=== PATIENT | male | born 1955 | race Caucasian/White ===

== ENCOUNTER 2017-07-25 17:15 | Inpatient (IN) | payer OTHER ==
[2017-08-14] MEDS ORDERED: Midazolam HCl 2 mg/2 ml Vial ONE ×2 (12:33→13:03)
[2017-08-14] MEDS ORDERED: Fentanyl 100 MCG/2 ML VIAL ONE ×2 (12:33→13:03)
[2017-08-14] MEDS ORDERED: CEFAZOLIN/Water 2 GM/20 ML SYRINGE ONE (12:42)
[2017-08-14] MEDS ORDERED: Ketorolac Tromethamine 30 MG/ML VIAL ONE (12:42)
[2017-08-14] MEDS ORDERED: Ketorolac Tromethamine 30 MG/ML VIAL IVP SCH (13:00)
[2017-08-14] MEDS ORDERED: cefOXitin Sodium 2 GM, Syringe 1 ML in Sterile Water 10 ML SLOW IVP SCH (13:00)
[2017-08-14] MEDS ORDERED: Acetaminophen 1,000 MG in Premix Bag 1 BAG IVPB SCH (13:00)
[2017-08-14] MEDS ORDERED: Fentanyl 250 MCG/5 ML VIAL ONE (13:03)
[2017-08-14] MEDS ORDERED: Albumin 5% 500 ML ONE (13:04)
[2017-08-14] MEDS ORDERED: Indocyanine Green 25 MG/10 ML VIAL ONE (13:14)
[2017-08-14] MEDS ORDERED: Bupivacaine/Epinephrine 0.25% 30 ML VIAL ONE (13:14)
[2017-08-14] MEDS ORDERED: Sterile Water 0 ML ONE (13:14)
[2017-08-14] MEDS ORDERED: Bupivacaine HCl 0.5%/Epinephrine 1:200,000/PF 30 ml Vial ONE (16:27)
[2017-08-14] MEDS ORDERED: Bupivacaine PF 0.5% 30 ML VIAL ONE (16:27)
[2017-08-14] MEDS ORDERED: Lidocaine 1% PF 5 ML VIAL ONE (16:40)
[2017-08-14] MEDS ORDERED: Propofol 200 MG/20 ML VIAL ONE (16:40)
[2017-08-14] MEDS ORDERED: Glycopyrrolate 0.2 MG/ML 5 ML SYRINGE ONE (16:40)
[2017-08-14] MEDS ORDERED: Ondansetron HCl/PF 4 MG/2 ML Vial ONE (16:40)
[2017-08-14] MEDS ORDERED: Dexamethasone 20 MG/5 ML VIAL ONE (16:40)
[2017-08-14] MEDS ORDERED: Promethazine HCl 25 MG/ML VIAL SLOW IVP PRN (17:23)
[2017-08-14] MEDS ORDERED: Meperidine HCl/PF 25 MG/ML VIAL SLOW IVP PRN (17:23)
[2017-08-14] MEDS ORDERED: Morphine 4 MG/ML Carpuject SLOW IVP PRN (19:03)
[2017-08-14] MEDS ORDERED: Ondansetron HCl/PF 4 MG/2 ML Vial IVP PRN (19:03)
[2017-08-14] MEDS ORDERED: Promethazine HCl 25 MG/ML VIAL IM PRN (19:03)
[2017-08-14] MEDS ORDERED: Insulin Regular 300 UNITS/3 ML VIAL SC PRN (19:03)
[2017-08-14] MEDS ORDERED: hydrALAZINE 20 MG/ML VIAL SLOW IVP PRN (19:03)
[2017-08-14] MEDS: Acetaminophen 1,000 MG in Premix Bag 1 BAG IVPB SCH (20:24)
[2017-08-14] MEDS: Ketorolac Tromethamine 30 MG/ML VIAL IVP SCH (20:25)
[2017-08-14] MEDS: D5 1/2 NS w/20 mEq KCL 1,000 ML IV SCH (20:26)
[2017-08-14] MEDS: Famotidine/PF 20 mg/2ml Vial SLOW IVP SCH (20:26)
[2017-08-14] MEDS: Famotidine 20 MG TAB PO SCH (20:43)
[2017-08-14 21:49] VITALS: BMI 28.6
[2017-08-15] MEDS ORDERED: Morphine 4 MG/ML VIAL SLOW IVP PRN (00:15)
[2017-08-15] MEDS ORDERED: Morphine 2 mg/2ml in 0.9% NaCl PF SYRINGE SLOW IVP PRN (00:15)
[2017-08-15] MEDS: Ketorolac Tromethamine 30 MG/ML VIAL IVP SCH ×3 (01:55→14:08)
[2017-08-15] MEDS: Acetaminophen 1,000 MG in Premix Bag 1 BAG IVPB SCH ×3 (01:55→14:18)
[2017-08-15] MEDS: D5 1/2 NS w/20 mEq KCL 1,000 ML IV SCH ×2 (05:24→14:23)
[2017-08-15 05:26] LABS: #Lymphocytes 0.9 thou/uL (1.20-3.40); #Neutrophils 12.6 thou/uL (1.40-6.50); %Basophils 0.2 % (0.0-1.0); %Eosinophils 0.2 % (0.0-10.0); %Lymphocytes 5.9 % (21.0-51.0); %Monocytes 7.2 % (0.0-10.0); Hematocrit 30.3 % (42.0-52.0); Mean Platelet Volume 7.1 fL (7.4-10.4); Red Blood Cell (RBC) Count 3.17 mill/uL (4.70-6.10); White Blood Cell (WBC) Count 14.5 thou/uL (4.8-10.8)
[2017-08-15 05:48] LABS: Anion Gap 11 mmol/L (10-20); BUN (Urea Nitrogen) 32 mg/dL (8.4-25.7); Calc. Creatinine Clearance 41 mL/min (70-130); Calcium 8.4 mg/dL (7.8-10.44); Carbon Dioxide 18 mmol/L (23-31); Chloride 109 mmol/L (98-107); Estimated GFR-MDRD 28
[2017-08-15] MEDS ORDERED: Lisinopril 5 MG TAB PO SCH ×2 (09:00→21:00)
[2017-08-15] MEDS ORDERED: FLU VACC QS2017-18 36 mo. & older 0.5 ML SYRINGE IM ONE (09:00)
[2017-08-15] MEDS: Famotidine 20 MG TAB PO SCH ×2 (09:01→20:19)
[2017-08-15] MEDS: Tamsulosin HCl 0.4 MG CAP PO SCH (09:01)
[2017-08-15] MEDS: Enoxaparin Sodium 40 MG/0.4 ML SYRINGE SC SCH ×2 (09:03→12:43)
[2017-08-15] MEDS: glyBURIDE 5 MG TAB PO SCH ×3 (09:59→17:13)
[2017-08-15] MEDS: metFORMIN 500 MG TAB PO SCH ×3 (10:00→17:13)
[2017-08-15] MEDS: Famotidine/PF 20 mg/2ml Vial SLOW IVP SCH ×2 (10:01→20:20)
[2017-08-15] MEDS ORDERED: Insulin Regular 300 UNITS/3 ML VIAL SC PRN (11:53)
[2017-08-15] MEDS ORDERED: Sodium Chloride 0.9% 1,000 ML IV SCH (12:00)
--- NOTE | 2017-08-15 13:47 | PRG ---
DATE OF SERVICE: 08/15/2017 SUBJECTIVE: Mr. 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 He has no complaints today. He is taking no additional narcotic medication since his s urgery. He notes very minimal discomfort. He has been tolerating clear liquids today. He denies na usea or vomiting. He has had no flatus yet. PHYSICAL EXAMINATION: VITAL SIGNS: He is afebrile, pulse 66, blood pressure 136/74. His urine output overnight was 1100 m L per his Bello. His Bello subsequently had been removed this morning. LUNGS: Clear to auscultation. CARDIAC: Regular rate and rhythm. ABDOMEN: Soft, nontender, nondistended. All the laparoscopic incisions are nicely healed with [employer] armendariz intact. No evidence of swelling or infection. Bowel sounds are present and normoactive. LABORATORY STUDIES: Reveals a hemoglobin of 10.4. This is stable from his preoperative hemoglobin o f 11. His platelet count is 210. On chemistries, his potassium is elevated at 5.7 this morning and this is up from his preop potassium level of 5.2 and his creatinine level is up to 2.3, which is up f rom his preoperative creatinine level of 1.9. His blood sugars were elevated over 200 a couple of ti mes today and he has been receiving some supplemental insulin. ASSESSMENT: The patient is doing well following his surgery. He was receiving some potassium in his IV fluids and this has been removed. I will continue even normal saline today in addition to clear liquids and monitor his kidney function. I will recheck his potassium level this afternoon. His lab oratory studies we will recheck tomorrow as well. He seems able to progress through his postoperativ e diet and if he is tolerating this and stable, then he is probably going to be ready for discharge t omorrow.
[2017-08-15 15:39] LABS: Anion Gap 12 mmol/L (10-20); BUN (Urea Nitrogen) 31 mg/dL (8.4-25.7); Calc. Creatinine Clearance 45 mL/min (70-130); Calcium 8.3 mg/dL (7.8-10.44); Carbon Dioxide 14 mmol/L (23-31); Chloride 112 mmol/L (98-107); Estimated GFR-MDRD 32
[2017-08-15] MEDS ORDERED: HYDROcodone/Acetaminophen 7.5/325 mg Tablet PO PRN ×2 (17:49)
[2017-08-15] MEDS ORDERED: Lactated Ringer's 1,000 ML IV SCH (18:15)
[2017-08-16 05:17] LABS: #Basophils 0.1 thou/uL (0.0-0.2); #Eosinphils 0.2 thou/uL (0.0-0.7); #Lymphocytes 1.7 thou/uL (1.20-3.40); #Monocytes 0.7 thou/uL (0.11-0.59); #Neutrophils 8.3 thou/uL (1.40-6.50); %Basophils 0.5 % (0.0-1.0); %Eosinophils 1.5 % (0.0-10.0); %Lymphocytes 15.4 % (21.0-51.0); %Monocytes 6.7 % (0.0-10.0); Hematocrit 26.2 % (42.0-52.0); Mean Platelet Volume 7.3 fL (7.4-10.4); Red Blood Cell (RBC) Count 2.74 mill/uL (4.70-6.10)
[2017-08-16 05:58] LABS: Anion Gap 10 mmol/L (10-20); BUN (Urea Nitrogen) 31 mg/dL (8.4-25.7); Calc. Creatinine Clearance 50 mL/min (70-130); Calcium 8.6 mg/dL (7.8-10.44); Carbon Dioxide 17 mmol/L (23-31); Chloride 112 mmol/L (98-107); Estimated GFR-MDRD 36
[2017-08-16] MEDS: Famotidine/PF 20 mg/2ml Vial SLOW IVP SCH (08:27)
[2017-08-16] MEDS: Famotidine 20 MG TAB PO SCH (08:29)
[2017-08-16] MEDS: Tamsulosin HCl 0.4 MG CAP PO SCH (08:29)
[2017-08-16] MEDS: Enoxaparin Sodium 40 MG/0.4 ML SYRINGE SC SCH (08:31)
[2017-08-16] MEDS: metFORMIN 500 MG TAB PO SCH (10:30)
[2017-08-16] MEDS: glyBURIDE 5 MG TAB PO SCH (10:30)
[2017-08-16 12:52] VITALS: BP 152/77; TEMP 97.9
--- NOTE | 2017-08-16 19:28 | DIS ---
DATE OF SERVICE: 08/16/2017 ADMISSION DIAGNOSIS: Cecal polyp. DISCHARGE DIAGNOSIS: Cecal polyp. OPERATIONS AND PROCEDURES PERFORMED: Robotic ileocecectomy. ADMISSION HISTORY: The patient is a 62-year-old white male who underwent recent colonoscopy and eval uation of anemia. He was found to have a 3 cm sessile cecal polyp. He is taken to the operating [facility]ern[facility] at this time for robotic resection. HOSPITAL COURSE: He underwent uneventful surgery. This segment was removed and inspected in the ope rating room and it was appropriate removal with good margins of the tissue. He has had an uneventful recovery. He has not taken any pain medicine since surgery. He has been afebrile with normal vital signs since his surgery. He is tolerating liquids and full liquids uneventfully with no nausea or v omiting. He has had several bowel movements. His abdomen is benign with normal bowel sounds. Incis ions are all nicely healed. His laboratory values revealed mild anemia yesterday of 10.4 with a hemoglobin of 8.8 today. His pancho karma profile revealed an elevation of creatinine early yesterday morning of 2.3 that dropped down t o 2.1 by afternoon and 1.9 today. This is back to his baseline. He had hyperkalemia initially that resolved quickly with IV fluids as well. In summary, he is doing well and feels well at this time and desires discharge. He appears to be med ically safe and we will discharge him to home at this time with prescriptions for tramadol to use as necessary. I have recommended he resume all of his home medications including his iron sulfate which he was already taking. I will see him back in my office in 10-14 days for routine followup. Additi onally, his pathology is pending at this time.
--- NOTE | 2017-08-17 13:50 | OP ---
DATE OF PROCEDURE: 08/14/2017 PREOPERATIVE DIAGNOSIS: Colonoscopically unresectable cecal polyp. POSTOPERATIVE DIAGNOSIS: Colonoscopically unresectable cecal polyp. OPERATION PERFORMED: Robotic ileocecectomy with primary intracorporeal anastomosis. SURGEON: Charlie Naranjo M.D. ANESTHESIA: General endotracheal. INDICATIONS: The patient is a 62-year-old white male. He recently underwent colonoscopy and evaluat ion of anemia. He was found to have a 3-4 cm cecal polyp that was colonoscopically unresectable. He was referred to myself for colon resection. Given the appearance in the pathology of the polyp that was felt to have low likelihood of malignancy, I recommended consideration of ileocecectomy as oppos ed to a right hemicolectomy, depended upon anatomy. DESCRIPTION OF OPERATION: Informed consent was obtained. The patient was taken to the operating [facility]ern[facility] m where general endotracheal anesthesia was obtained with the patient in supine position. He had und ergone outpatient mechanical and antibiotic bowel prep. His temperature was maintained at 36 degrees or above throughout the case. Abdomen was prepped with ChloraPrep and draped in sterile fashion. Bello catheter was placed. Local anesthetic was infiltrated and an 8 mm left periumbilical incision was created through which a Veres s needle was passed into the peritoneal cavity. Pneumoperitoneum was established using carbon dioxid e up to a pressure of 15 mmHg. An 8 mm trocar port was passed through this same incision and robotic camera was passed through this port. Under direct vision, I placed a 15 mm left upper quadrant port and an 8 mm suprapubic port and an 11 mm left lower quadrant gallery assistant port. The patient was positioned appropriately in slight Trendelenburg and slight rotation to his left. e robot was then docked to the ports and instruments and the operation was continued from the robotic console. There was abundant intraabdominal fatty tissue that at times hampered the exposure. The omentum was reflected superiorly. The ileum and cecum were identified. There was abundant fatty epiploic append ages and redundant fat within the mesentery of the right colon. The distal ileum and cecum were adhe rent to the lateral abdominal wall. These adhesions were taken down using sharp dissection. I was t hen able to elevate the cecum in order to identify the ileocolic vessels. Dissection was begun on and during the course of dissection, without incising the vessels, they began to tear and bleed sp ontaneously. They appeared to be weaker and much more fragile than typical. I was eventually able t o get control and sealed the vessels both proximally and distally using the vessel sealer. There was approximately 150 mL of blood loss as appropriate control was obtained. After hemostasis was achiev ed, attention was turned to the operation. A retroperitoneal dissection was carried out behind the c ecum in the mid right colon using entirely blunt dissection and it was carried down to the lateral ab dominal wall. When I examined the patient's anatomy, he had adequate length of his right colon to al low for an appropriate ileocecectomy without necessitating a right hemicolectomy. I then carried the dissection through the right colon mesentery up to the colonic wall, and at this point, I divided th e right colon just distal to the cecum with 2 fires of the blue load of the robotic stapler. I then turned my attention back to the mesentery and dissected towards the small bowel. When I arriv ed, an appropriate segment of the small bowel, I divided this ulcer with a single fire of the stapler . The intervening mesentery was taken down using a combination of sharp dissection with electrocaute ry and the vessel sealer. Once complete mobilization was achieved including the lateral attachments, the colon was positioned above the liver and the operation was continued. The small bowel rested comfortably against the stapled colon. An isoperistaltic anastomosis was then created with a single fire of the blue load of the robotic stapler entering the small bowel near the staple line and the colon about 7 cm from the staple line. The common enterotomy was then closed us ing a running suture of 3-0 Stratafix in a to and fro fashion. The anastomosis appeared to be widely patent and nicely closed. There had been no spillage during the course of the anastomosis with the closure. The anastomosis was tension free. The abdominal cavity was irrigated and all irrigant was aspirated. The areas of the ileocolic vessel transection were inspected again and found to be entirely hemosta tic. The fascial defects at the 15 mm port site and the 11 mm port site were closed with 0 Vicryl arauz ture using a GraNee needle. The specimen was grasped through one of the superior ports. Attention w as turned to the inferior suprapubic port. This incision was enlarged to about 4 cm. Dissection was carried down to the fascia which was incised transversely and the muscles were split using muscle sp litting gaining access into the peritoneal cavity. The Jose wound retractor was placed. The speci men was delivered through the wound retractor and passed off the field. The wound retractor was pelon tiff. The peritoneum was closed with a couple of interrupted sutures of 0 PDS. The fascia was closed with a running suture of #1 PDS. At this point, gowns and gloves were changed, all instruments were removed, and the sterile closing s ilk was used. The wounds were irrigated with about 2 liters of saline. The wounds were closed in la yers with 3-0 and 4-0 Monocryl, and Dermabond was placed externally. There were no complications. T he patient tolerated the procedure well and was taken in stable condition to the recovery room.
== END 2017-08-16 15:51 | disposition home or self-care (01) | DRG 331 ==
LOC: SURG A 08-14 11:26 → SJJU 08-14 18:26
PROVIDERS: ADMIT Specialist; ATTEND Specialist
PROC: 0DTH4ZZ Resection of Cecum, Percutaneous Endoscopic Approach (ICD-10-PCS; principal; 2017-08-14)
PROC: 8E0W4CZ Robotic Assisted Procedure of Trunk Region, Percutaneous Endoscopic Approach (ICD-10-PCS; 2017-08-14)
PROC: 3E0T3BZ Introduction of Anesthetic Agent into Peripheral Nerves and Plexi, Percutaneous Approach (ICD-10-PCS; 2017-08-14)
DX: D12.6 Benign neoplasm of colon, unspecified (principal); E11.65 Type 2 diabetes mellitus with hyperglycemia; E87.5 Hyperkalemia; Z88.2 Allergy status to sulfonamides
CPT/HCPCS: 36415; 36416; 80048; 85025; 88309; A4216; J0131; J0360; J0670; J0694; J1100; J1650; J1815; J1885; J2001; J2250; J2405; J2550; J2704; J3010; P9045; S0020; S0028

== ENCOUNTER 2017-08-01 11:20 | Outpatient (CLI) | payer OTHER ==
[2017-08-01 12:47] LABS: #Eosinphils 0.3 thou/uL (0.0-0.7); #Lymphocytes 1.2 thou/uL (1.20-3.40); #Monocytes 0.5 thou/uL (0.11-0.59); #Neutrophils 6.7 thou/uL (1.40-6.50); %Basophils 0.4 % (0.0-1.0); %Eosinophils 2.9 % (0.0-10.0); %Lymphocytes 14.2 % (21.0-51.0); %Monocytes 6.1 % (0.0-10.0); Hematocrit 32.1 % (42.0-52.0); Mean Platelet Volume 7.5 fL (7.4-10.4); White Blood Cell (WBC) Count 8.7 thou/uL (4.8-10.8)
[2017-08-01 12:50] LABS: Hemoglobin A1c 6.7 % (4.0-6.0)
[2017-08-01 13:06] LABS: Anion Gap 11 mmol/L (10-20); BUN (Urea Nitrogen) 30 mg/dL (8.4-25.7); Calc. Creatinine Clearance 0 mL/min (70-130); Calcium 8.9 mg/dL (7.8-10.44); Carbon Dioxide 23 mmol/L (23-31); Chloride 107 mmol/L (98-107); Estimated GFR-MDRD 35
--- NOTE | 2017-08-05 08:44 | EKG ---
Test Reason : Blood Pressure : / mmHG Vent. Rate : 057 BPM Atrial Rate : 057 BPM P-R Int : 164 ms QRS Dur : 088 ms QT Int : 426 ms P-R-T Axes : 037 -29 -04 degrees QTc Int : 414 ms Sinus bradycardia Minimal voltage criteria for LVH, may be normal variant Borderline ECG No previous ECGs available Confirmed by Geovany MCINTYRE ([id number]) on 08/05/2017 8:43:51 AM Referred By: AMYITO Confirmed By:Geovany MCINTYRE
== END 2017-08-01 11:21 | disposition home or self-care (01) ==
LOC: LABBT 11:20
PROVIDERS: ATTEND Specialist
DX: Z01.818 Encounter for other preprocedural examination (principal); D12.6 Benign neoplasm of colon, unspecified
CPT/HCPCS: 80048; 83036; 85025; 93005; 93010

== ENCOUNTER 2018-06-14 10:55 | Inpatient (IN) | payer MEDICARE ==
[2018-06-14 11:46] LABS: #Eosinphils 0.1 thou/uL (0.0-0.7); #Lymphocytes 0.7 thou/uL (1.20-3.40); #Monocytes 0.6 thou/uL (0.11-0.59); #Neutrophils 9.5 thou/uL (1.40-6.50); %Basophils 0.2 % (0.0-1.0); %Eosinophils 0.9 % (0.0-10.0); %Lymphocytes 6.2 % (21.0-51.0); %Monocytes 5.2 % (0.0-10.0); %Neutrophils 87.5 % (42.0-75.0); Hemoglobin 7.2 g/dL (14.0-18.0); Mean Corpuscular HGB CONC 33.9 g/dL (32.0-36.0); Mean Corpuscular Hemoglobin 31.2 pg (27.0-31.0); Mean Platelet Volume 6.8 fL (7.4-10.4); Platelet Count 285 thou/uL (130-400); RBC Distribution Width 14.3 % (11.5-14.5); Red Blood Cell (RBC) Count 2.31 mill/uL (4.70-6.10); White Blood Cell (WBC) Count 10.9 thou/uL (4.8-10.8)
[2018-06-14 12:10] LABS: ALT (SGPT) 15 U/L (8-55); AST (SGOT) 15 U/L (5-34); Albumin 3.6 g/dL (3.4-4.8); Alkaline Phosphatase 90 U/L (40-150); Anion Gap 16 mmol/L (10-20); BUN (Urea Nitrogen) 109 mg/dL (8.4-25.7); Bilirubin, Total 0.5 mg/dL (0.2-1.2); CK (CPK) 72 U/L (30-200); Calc. Creatinine Clearance 0 mL/min (70-130); Calcium 8.2 mg/dL (7.8-10.44); Carbon Dioxide 11 mmol/L (23-31); Chloride 110 mmol/L (98-107); Estimated GFR-MDRD 7; Globulin 4.2 g/dL (2.4-3.5); Glucose 193 mg/dL (80-115); Lipase 262 U/L (8-78); Potassium 5.3 mmol/L (3.5-5.1); Protein, Total 7.8 g/dL (5.8-8.1); Sodium 132 mmol/L (136-145)
[2018-06-14 12:13] LABS: CKMB 2.9 ng/mL (0-6.6); Troponin I Less than 0.010 ng/mL (< 0.028)
[2018-06-14] MEDS ORDERED: Dextrose 50% Abboject 50 ML SYRINGE ONE (14:13)
[2018-06-14] MEDS ORDERED: Insulin Regular 300 UNITS/3 ML VIAL ONE (14:13)
[2018-06-14 14:51] LABS: Bilirubin Negative (Negative); Blood, Urine Moderate (Negative); Clarity TURBID (Clear); Glucose, Urine (Dipstick) Negative (Negative); Leukocyte Large (Negative); Nitrite Negative (Negative); Protein, Urine (Dipstick) 30 mg/dL (Neg-Trace); Specific Gravity, Urine 1.006 (1.002-1.036); Urobilinogen 0.2 mg/dL (0.2-1.0)
[2018-06-14 14:54] LABS: Bacteria/HPF 1+ HPF (None Seen); Hyaline Casts/LPF 4-6 HYALINE CAST LPF (0-3 Hyaline); Squamous Epithelial None Seen HPF (0-3)
[2018-06-14 17:39] VITALS: BMI 27.5
[2018-06-14] MEDS ORDERED: Epoetin (ESRD) 20,000 UNITS/ML SC SCH (18:00)
[2018-06-14] MEDS: Sodium Chloride 0.9% 1,000 ML IV SCH (18:38)
[2018-06-14] MEDS ORDERED: Ondansetron HCl/PF 4 MG/2 ML Vial IVP PRN (20:09)
[2018-06-14] MEDS ORDERED: Dextrose 50% Abboject 50 ML SYRINGE SLOW IVP PRN (20:09)
[2018-06-14] MEDS ORDERED: Ondansetron ODT 4 MG TAB PO PRN (20:09)
[2018-06-14] MEDS ORDERED: HYDROcodone/Acetaminophen 5/325 mg Tablet PO PRN (20:09)
[2018-06-14] MEDS ORDERED: Acetaminophen 650 MG Suppository PR PRN (20:09)
[2018-06-14] MEDS ORDERED: Dextrose 5% in Water 1,000 ML IV PRN (20:09)
[2018-06-14] MEDS: Heparin 5,000 UNITS/ML VIAL SC SCH (20:45)
[2018-06-14] MEDS: Famotidine 20 MG TAB PO SCH (20:46)
[2018-06-14] MEDS: Finasteride 5 MG TAB PO SCH (20:47)
[2018-06-14] MEDS: HumaLOG 300 UNITS/3 ML VIAL SC PRN (20:49)
--- NOTE | 2018-06-14 23:39 | CON ---
DATE OF CONSULTATION: 06/14/2018 RENAL MEDICINE HISTORY OF PRESENT ILLNESS: Mr. Little is a 63-year-old white male with known history of chronic re nal failure and was admitted for further management of this worsening renal dysfunction. Over the la st several months, his creatinine has worsened from 2.45 to the most recent value of more than 7 mg p ercent. He is now admitted for further evaluation and management. He will be given empiric volume r epletion and Bello catheter has been started. If no significant improvement, he may need to be initi ated on dialysis. REVIEW OF SYSTEMS: Positive for generalized malaise. No nausea, no vomiting. No tremors, no asteri xis, no abdominal pain, no syncopal episode, no productive cough, no fever or chills. No hematochezi a, no melena, no hematemesis, no dysuria, no urinary frequency, no abdominal pain, no fever or chills , no headache, no sore throat. HOME MEDICATIONS: Includes the following; iron 65 mg tab once a day, glipizide 5 mg p.o. b.i.d., osoroi sulosin 0.4 mg once a day, acetaminophen p.r.n., folic acid 800 mg once a day. PAST MEDICAL HISTORY: 1. Chronic renal failure secondary to presumed diabetic nephropathy. 2. Type 2 diabetes mellitus. 3. BPH. 4. 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 Please note [facility] of diabetes for the last 30 years. PAST SURGICAL HISTORY: 1. Status post right hemicolectomy. 2. Status post appendectomy. 3. Status post colonoscopy. 4. Status post tonsillectomy. ALLERGIES: SULFA. TRAUMA: None. IMMUNIZATIONS: Up to date. HOSPITALIZATIONS: Please see past medical history. FAMILY HISTORY: No family history of ESRD. SOCIAL HISTORY: The patient is and lives in [place], he has several stepchildren - 4. No hist ory of smoking. Alcohol none. No IV drug abuse. 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 Education: As sociate's Degree. He chews tobacco, no IV drug abuse. No blood transfusion. PHYSICAL EXAMINATION: VITAL SIGNS: Blood pressure is noted at 140/67, respiratory rate 17, O2 sat 100%, heart rate 71. GENERAL: Awake, alert, sitting comfortable, not in distress. SKIN: Adequate turgor. HEENT: He has pale conjunctivae, anicteric sclerae. NECK: No neck mass, no carotid bruits, no JVD. CHEST: No deformities. LUNGS: Clear breath sounds. HEART: Normal sinus rhythm. No murmur, no gallops, no rubs. ABDOMEN: Globular, soft, nontender, no masses. EXTREMITIES: No edema, no deformities. NEUROLOGIC: Moving all extremities. No tremors, no asterixis, no ataxia. LABORATORY DATA: Laboratories of 06/14/2018; urinalysis, specific gravity is 10.06. Urine protein 3 0, RBC 4-6, WBC greater than 50, 4-6 hyaline cast. Sodium 132, potassium 5.3, chloride 110, carbon dioxide 11, BUN 109, creatinine 7.54, glucose 193, ca lcium 8.2, albumin is 3.6, troponin I less than 0.01, lipase 262. White count 10.9, hemoglobin 7.2. ASSESSMENT AND PLAN: 1. Anemia - most likely related to her chronic renal failure. Start Epogen and iron supplementation - p.r.n. blood transfusion once hemoglobin is less than 7. 2. Chronic renal failure, unclear etiology, although diabetic nephropathy is a possibility. We will do a renal ultrasound to rule out a possible obstructive uropathy with this patient. In addition, e mpiric volume repletion has been done with the patient. There is no indication for any emergent hemo dialysis tonight. We will reevaluate again in a.m. 3. ? of UTI. Urine C&S has been ordered. In addition, a renal ultrasound has also been ordered for tonight. Several serologies have been also ordered for tomorrow morning. Overall, agree with current manageme nt.
[2018-06-15] MEDS: HYDROcodone/Acetaminophen 5/325 mg Tablet PO PRN (00:36)
[2018-06-15] MEDS: Sodium Chloride 0.9% 1,000 ML IV SCH ×3 (02:36→23:13)
[2018-06-15 04:44] LABS: #Eosinphils 0.3 thou/uL (0.0-0.7); #Lymphocytes 1.2 thou/uL (1.20-3.40); #Monocytes 0.8 thou/uL (0.11-0.59); #Neutrophils 10.4 thou/uL (1.40-6.50); %Basophils 0.1 % (0.0-1.0); %Eosinophils 2.3 % (0.0-10.0); %Lymphocytes 9.3 % (21.0-51.0); %Monocytes 6.1 % (0.0-10.0); %Neutrophils 82.1 % (42.0-75.0); Hemoglobin 7.6 g/dL (14.0-18.0); Mean Corpuscular HGB CONC 33.2 g/dL (32.0-36.0); Mean Corpuscular Hemoglobin 30.9 pg (27.0-31.0); Mean Corpuscular Volume 92.9 fL (78.0-98.0); Mean Platelet Volume 6.8 fL (7.4-10.4); Platelet Count 281 thou/uL (130-400); RBC Distribution Width 14.5 % (11.5-14.5); Red Blood Cell (RBC) Count 2.46 mill/uL (4.70-6.10); White Blood Cell (WBC) Count 12.6 thou/uL (4.8-10.8)
[2018-06-15 04:52] LABS: Anion Gap 14 mmol/L (10-20); BUN (Urea Nitrogen) 101 mg/dL (8.4-25.7); Calc. Creatinine Clearance 14 mL/min (70-130); Calcium 8.3 mg/dL (7.8-10.44); Carbon Dioxide 11 mmol/L (23-31); Chloride 114 mmol/L (98-107); Estimated GFR-MDRD 9; Glucose 127 mg/dL (80-115); Potassium 4.9 mmol/L (3.5-5.1); Sodium 134 mmol/L (136-145)
[2018-06-15 05:10] LABS: HBSAg Index 0.19 S/CO (0-0.99); Hep B Surf Ag Non-Reactive S/CO (NonReactive); Hep C IgG Ab Non-Reactive (NonReactive); Hep C Index 0.12 S/CO (0-0.79)
[2018-06-15] MEDS: Famotidine 20 MG TAB PO SCH ×2 (08:27→20:27)
[2018-06-15] MEDS: Ferrous Sulfate 325 MG TAB PO SCH ×2 (08:27→16:18)
[2018-06-15] MEDS: Heparin 5,000 UNITS/ML VIAL SC SCH ×3 (08:28→20:33)
--- NOTE | 2018-06-15 08:45 | ULT ---
RENAL SONOGRAM: HISTORY: Renal failure. FINDINGS: The right kidney is 14.5 cm length. Moderate hydroureteral nephrosis. Multiple cysts. The largest is at the inferior pole measuring up to 5.7 cm. The left kidney is 11.8 cm and also shows moderate to severe hydronephrosis. Urinary bladder is deco mpressed by a Bello catheter. IMPRESSION: Bilateral hydronephrosis. Cause not evident. Urinary bladder is decompressed by a Bello catheter. Right renal cysts. POS: [facility]
[2018-06-15] MEDS ORDERED: Tamsulosin HCl 0.4 MG CAP PO SCH (09:00)
[2018-06-15] MEDS: cefTRIAXone\\ROCEPHIN 2 GM in Sodium Chloride 0.9% 100 ML IVPB SCH (11:36)
[2018-06-15] MEDS: HumaLOG 300 UNITS/3 ML VIAL SC PRN ×3 (11:37→21:32)
--- NOTE | 2018-06-15 12:08 | PRG ---
DATE OF SERVICE: 06/15/2018 SUBJECTIVE: Mr. Little is a 63-year-old white male who was admitted for an acute kidney injury on t op of his chronic renal failure. He was started on IV volume repletion. In addition, Bello catheter was inserted. Of interest, when the Bello catheter was inserted, about 800 mL of urine output was n oted. He also had renal ultrasound which shows bilateral hydronephrosis. No complaints today, no ch est pain or shortness of breath. He does make mention of some degree of insomnia. OBJECTIVE: VITAL SIGNS: Blood pressure 155/70, heart rate 76, respiratory rate 13, temperature 98.5, pulse ox 9 9%. GENERAL: Noted to be awake, alert, comfortable, not in overt distress. SKIN: Adequate turgor. HEENT: He has slightly pale conjunctivae, anicteric sclerae. NECK: No neck mass, no carotid bruits, no JVD. CHEST: No deformities. LUNGS: Clear breath sounds, no wheezing, no crackles. HEART: Normal sinus rhythm. No murmur, no gallops or rubs. ABDOMEN: Globular, soft, nontender, no masses. Positive for bowel sounds. Negative for epigastric bruits. GROIN: No inguinal lymphadenopathy. EXTREMITIES: No edema, no deformities. MEDICATIONS: Of 06/15/2018 was reviewed. LABORATORY DATA: Of 06/15/2018: White count 12.6, hemoglobin 7.6. Sodium 134, potassium 4.9, chlori de 114, carbon dioxide 11, BUN 101, creatinine 6.48, glucose 127, calcium 8.3. PTH is 118. Hepatiti s B and C was negative. Urinalysis specific gravity 106. ASSESSMENT AND PLAN: 1. Acute kidney injury -- renal ultrasound showed bilateral hydronephrosis. We will consider a low bladder outlet obstruction for this patient. Continue to leave the Bello catheter as is. Continue gentle volume repletion. There is no indication for any dialytic intervention with this patient. 2. Anemia, on weekly Epogen, p.m. blood transfusion. 3. Metabolic acidosis -- start sodium bicarbonate 650 mg p.o. 1 tab t.i.d. We will consult Urology for the bilateral hydronephrosis. Overall, I agree with current management. Recheck base met and CB C in a.m.
[2018-06-15] MEDS ORDERED: B & O 30 MG SUPP PR SCH (14:30)
[2018-06-15] MEDS: Sodium Bicarbonate Tab 325 MG TAB PO SCH ×2 (15:04→20:33)
--- NOTE | 2018-06-15 15:36 | PDOC.PN ---
- Subjective Encounter Start Date: 06/15/18 Encounter Start Time: 14:00 pt feels better, burr in, renal U/S and nephrology note reviewed good UOP, Cr down >1.0. no f/C, no n/V/d/c ROS neg x as above. Urology has seen, recommendations pending - Objective Resuscitation Status: Resuscitation Status FULL:Full Resuscitation MAR Reviewed: Yes Vital Signs & Weight: Vital Signs (12 hours) Temp Pulse Resp BP BP Pulse Ox 06/15/18 12:29 98.4 F 104 H 16 159/74 H 100 06/15/18 08:23 98.5 F 76 13 155/70 H 99 06/15/18 08:00 99 Weight Weight 186 lb 9.6 oz I&O: 06/14/18 06/15/18 06/16/18 06:59 06:59 06:59 Intake Total 1440 Output Total 2775 Balance -1335 Result Diagrams: 06/15/18 03:57 06/15/18 03:57 Additional Labs: Accuchecks 06/15/18 06/15/18 06/14/18 11:24 05:51 20:44 POC Glucose 255 H 138 H 312 H Radiology Reviewed by me: Yes Phys Exam - Physical Examination Constitutional: NAD HEENT: PERRLA, moist MMs, sclera anicteric, oral pharynx no lesions Neck: no nodes, no JVD, supple, full ROM Respiratory: no wheezing, no rales, no rhonchi, clear to auscultation bilateral Cardiovascular: RRR, no significant murmur, no rub Gastrointestinal: soft, non-tender, no distention, positive bowel sounds Musculoskeletal: no edema, pulses present Neurological: non-focal, normal sensation, moves all 4 limbs Lymphatic: no nodes Psychiatric: normal affect, A&O x 3 Skin: no rash, normal turgor, cap refill <2 seconds Dx/Plan (1) JOSE (acute kidney injury) Code(s): N17.9 - ACUTE KIDNEY FAILURE, UNSPECIFIED Status: Acute (2) CKD (chronic kidney disease) stage 4, GFR 15-29 ml/min Code(s): N18.4 - CHRONIC KIDNEY DISEASE, STAGE 4 (SEVERE) Status: Chronic (3) Bladder outlet obstruction Code(s): N32.0 - BLADDER-NECK OBSTRUCTION Status: Chronic (4) BPH NOS w ur obs/LUTS Code(s): N40.1 - BENIGN PROSTATIC HYPERPLASIA WITH LOWER URINARY TRACT SYMP Status: Chronic (5) DM2 (diabetes mellitus, type 2) Status: Chronic Qualifiers: Diabetes mellitus [facility] insulin use: without [facility] use Diabetes mellitus complication status: without complication Qualified Code(s): E11.9 - Type 2 diabetes mellitus without complications - Plan cont current plan of care, continue antibiotics, PT/OT, out of bed/ambulate * . continue burr, follow up on urology recommendations
[2018-06-15] MEDS ORDERED: Sodium Chloride 0.9% 10 ML ONE (20:11)
[2018-06-15] MEDS: Finasteride 5 MG TAB PO SCH (20:27)
[2018-06-15] MEDS: Tamsulosin HCl 0.4 MG CAP PO SCH (20:27)
[2018-06-15] MEDS: traZODone HCl 50 MG TAB PO SCH (20:28)
--- NOTE | 2018-06-15 21:05 | CON ---
DATE OF CONSULTATION: 06/15/2018 REASON FOR CONSULTATION: Consultation requested for bilateral hydronephrosis with presumed bladder outlet obstruction. HISTORY OF PRESENT ILLNESS: The patient is a 63-year-old male who was followed in the office by the [facility] previously for his BPH and been on tamsulosin before, but never finasteride. He reports not having been seen by them for at least a year and half since they actually retired in the summer of 2016 and he has not seen another urologist since then. Normally, he has frequency q.2 hours and nocturia times 4 to 5. The stream can be variable. He does not always feel like he is emptying. He has never required a catheter before. He does admit to prior urinary tract infections and also had cystoscopy in the office as part of the workup for that. He was noted to have large residuals and the [facility] did discuss catheterization with him, but this was never initiated. He reports having been screened with digital rectal exams, but he is not sure about his PSAs. I assume that they would have checked this, but I do not have any records of PSAs. PAST MEDICAL HISTORY: Significant for diabetes for 30 years, chronic renal insufficiency with anemia. PAST SURGICAL HISTORY: Includes right hemicolectomy for multiple polyps in 2016, appendectomy, and tonsils. MEDICATIONS: Iron, glipizide b.i.d., tamsulosin, folic acid. ALLERGIES: He is allergic to SULFA. SOCIAL HISTORY: He does not smoke; however, he does chew cigars on occasion. He does not drink, uses no drugs. 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 REVIEW OF SYSTEMS: In the recent past, he has had some lethargy, known BPH. Bowels have been variable. It varies from loose stools to normal. He had one yesterday morning that seems to be normal for him. He is due for another colonoscopy sooner than later given the one in 04/2017 showed the polyps that were not all adequately removed without the definitive surgery. He has no chest pain, no shortness of breath, no fever. He seems always cold, but does not actually have chills. He was nauseous and vomited a few days back and does report that sometimes his stools are black, but never seen blood in them. FAMILY HISTORY: Mom at 90. She had colon cancer, but survived and of something else. Dad at 83 of unknown causes. He does not think he had any cancer. PHYSICAL EXAMINATION: GENERAL: He is standing up at the bed, feeling relatively comfortable. VITAL SIGNS: T-max 98.5, blood pressure 155/70, heart rate 76, saturating 96% on room air with a respiratory rate of 13. It was reported that in the ER, a catheter was placed for 750 and by the time he left the ER, there was 1300 total ; and overnight, he has had another 1400. He was stood and laid down for the exam. NECK: He had no JVD. He actually had decent color for his anemia. HEENT: No scleral icterus. CARDIOVASCULAR: Regular rate and rhythm. No murmurs, gallops, or rubs. LUNGS: Clear to auscultation bilaterally. ABDOMEN: Softly distended, nontender with normoactive bowel sounds. GENITOURINARY: Testes were descended bilaterally without masses. Phallus is uncircumcised with the phallus reduced and Bello catheter in place. The Bello catheter was actually twisted upon itself and not able to drain adequately from that standpoint, but I was also concerned about the amount that was sticking out and that the balloon might be stuck in the prostate. I pushed this in with some difficulty, but it did seem to go in and not kick back. After manipulating the catheter, I hand irrigated it and he had significant discomfort and pressure with this much more than would be anticipated. So, at this point, I took down the balloon; however, only 2 mL of fluid came out and then it was stuck. So, I do think that there was some kinking or compression on the balloon. Ultimately, by leaving there approximately 30 seconds later, it spontaneously deflated and I wanted to place another. So, I took this out and prepped him sterilely and attempted to place an 18-Luxembourger coude without success and with significant discomfort to the patient. I was not convinced that it was in place, so I never attempted to blow up the balloon and removed it and prepared for flexible cystoscopy. RECTAL: On digital rectal exam, he had an enlarged prostate with a nodule noted on the lateral right side. There was no sidewall fixation. He reports that that was unknown to him. The patient was prepped and using an 18-Luxembourger flexible cystoscope, the urethra was traversed. The sphincter was quite tight, but able to be pushed through and then the prostate did not really have any obvious trauma and then I was into the bladder, inspection, I did not see any obvious mass, but I was clearly inside the bladder and left a wire in that place and removed the cystoscope and then placed an 18-Luxembourger Tryon over the wire without difficulty. All of this seemed painful to the patient, but once the balloon was blown up, he had no discomfort and slowly started to feel better and the catheter was draining yellow urine and it was secured appropriately. LABORATORY DATA: Laboratory values reveal a significant anemia of 7.6 and 22.8. BUN and creatinine are very elevated. He came in at 109 and 7.54. It only came down to 101 and 6.48, which is not consistent with adequate drainage after bladder outlet obstruction, but he does have the known renal insufficiency ; however, his baseline is closer to 2. Urinalysis from admission showed too numerous to count wbc's, 4-6 red blood cells, 1+ bacteria and no skin cells, and 30 protein. A urine culture from November of this year showed Klebsiella pneumoniae. I do not have a urinalysis from that. A renal ultrasound from 02/2018 was reviewed personally and showed bilateral hydronephrosis with a Bello in the bladder and it did not appear to be fully decompressed, although the balloon did appear to be in the bladder and there was a right simple cyst. ASSESSMENT: We have a 63-year-old male with chronic renal insufficiency on top of bladder outlet obstruction with a Bello catheter that initially was likely not draining sufficiently despite good output. It was replaced with a Bello catheter that is for sure adequately in the bladder/draining, and hopefully this will help to further improve his renal function and creatinine by tomorrow. I have started him on Rocephin for presumed infection and all the significant manipulation from the catheter attempts. I will increase his tamsulosin to twice a day and add finasteride (which was already done this stay- -he should stay on these indefinitely and/or until surgery is considered. He also has an abnormal digital rectal exam, and I do not have any prior PSAs. So I have asked him to work to get the records from Dr. Colvin's office. We will go ahead and order one now, but I expect it to be elevated based on all of the manipulation and mild infection that has occurred this day. So, continue indwelling catheter secured all times and monitor. MTDD
[2018-06-15] MEDS: Acetaminophen 325 MG TAB PO PRN (23:17)
[2018-06-16 05:15] LABS: #Basophils 0.1 thou/uL (0.0-0.2); #Eosinphils 0.2 thou/uL (0.0-0.7); #Lymphocytes 1.7 thou/uL (1.20-3.40); #Monocytes 0.5 thou/uL (0.11-0.59); #Neutrophils 7.4 thou/uL (1.40-6.50); %Basophils 0.6 % (0.0-1.0); %Eosinophils 1.9 % (0.0-10.0); %Lymphocytes 17.1 % (21.0-51.0); %Monocytes 5.5 % (0.0-10.0); Hemoglobin 7.4 g/dL (14.0-18.0); Mean Corpuscular HGB CONC 34.2 g/dL (32.0-36.0); Mean Corpuscular Hemoglobin 31.5 pg (27.0-31.0); Mean Corpuscular Volume 92.2 fL (78.0-98.0); Mean Platelet Volume 6.6 fL (7.4-10.4); Platelet Count 272 thou/uL (130-400); RBC Distribution Width 14.5 % (11.5-14.5); Red Blood Cell (RBC) Count 2.35 mill/uL (4.70-6.10); White Blood Cell (WBC) Count 9.8 thou/uL (4.8-10.8)
[2018-06-16 05:34] LABS: Anion Gap 13 mmol/L (10-20); BUN (Urea Nitrogen) 90 mg/dL (8.4-25.7); Calc. Creatinine Clearance 14 mL/min (70-130); Calcium 8.5 mg/dL (7.8-10.44); Carbon Dioxide 12 mmol/L (23-31); Chloride 117 mmol/L (98-107); Estimated GFR-MDRD 10; Glucose 106 mg/dL (80-115); Potassium 4.7 mmol/L (3.5-5.1); Sodium 137 mmol/L (136-145)
[2018-06-16] MEDS: Tamsulosin HCl 0.4 MG CAP PO SCH ×2 (08:24→20:59)
[2018-06-16] MEDS: Ferrous Sulfate 325 MG TAB PO SCH ×2 (08:24→17:29)
[2018-06-16] MEDS: Heparin 5,000 UNITS/ML VIAL SC SCH ×3 (08:25→21:00)
[2018-06-16] MEDS: Famotidine 20 MG TAB PO SCH ×2 (08:25→20:59)
[2018-06-16] MEDS: Sodium Bicarbonate Tab 325 MG TAB PO SCH ×3 (08:25→20:59)
--- NOTE | 2018-06-16 11:18 | PRG ---
DATE OF SERVICE: 06/16/2018 SUBJECTIVE: Mr. Little is a 63-year-old white male who was admitted for his acute kidney injury on top of his chronic renal failure. Initial evaluation showed he had bilateral hydronephrosis. He mos t likely has a low bladder outlet obstruction. Urology has been consulted. We will continue IV hydr ation. Bello catheter has been replaced by the urologist. No new complaints today. Denies any ches t pain or shortness of breath. PHYSICAL EXAMINATION: VITAL SIGNS: Blood pressure is 128/59, heart rate 78, respiratory 16, temperature 98.2, pulse ox 97% . GENERAL: Noted to be awake, alert, standing comfortable, not in overt distress. SKIN: Adequate turgor. HEENT: He has slightly pale conjunctivae, anicteric sclerae. NECK: No neck mass, no carotid bruits, no JVD. CHEST: No deformities. LUNGS: Clear breath sounds. HEART: Normal sinus rhythm. No murmur, no gallops, no rubs. ABDOMEN: Globular, soft, nontender. No masses. EXTREMITIES: No edema, no deformities. MEDICATIONS: Of 06/16/2018 reviewed. LABORATORY: Of 06/16/2018: White count 9.8, hemoglobin 7.4, hematocrit 21.6, platelet count 172,000 . Sodium 134, potassium 4.9, chloride 114, carbon dioxide 11, BUN 101, creatinine 6.48. On 06/16/2018: Sodium 137, potassium 4.7, chloride 117, carbon dioxide 12, BUN 90, creatinine 5.94, glucose 106, calcium 8.5, TSH 2.2. ASSESSMENT AND PLAN: 1. Acute kidney injury on top of his chronic renal failure -- superimposed low bladder outlet obstru ction. Urology is following. Continue Bello catheter. We will also continue current normal saline 100 mL per hour. No indication for any dialytic intervention. Creatinine is slowly improving. 2. Anemia, on weekly Epogen and ferrous sulfate. Overall, agree with current management.
[2018-06-16] MEDS: Sodium Chloride 0.9% 1,000 ML IV SCH ×2 (11:59→22:28)
[2018-06-16] MEDS: cefTRIAXone\\ROCEPHIN 2 GM in Sodium Chloride 0.9% 100 ML IVPB SCH (11:59)
[2018-06-16] MEDS: HumaLOG 300 UNITS/3 ML VIAL SC PRN ×3 (14:31→21:00)
--- NOTE | 2018-06-16 14:59 | PDOC.PN ---
- Subjective Encounter Start Date: 06/16/18 Encounter Start Time: 12:35 follow up for JOSE on CKD, BPH with bladder outlet obstruction. Pt feels better after burr exchange, Cr still improving, t sukh not as quickly as hoped. no f/C, no N/V/d/C, no CP or sOb, no orthopnea. labs ok otherwise, UCx with klebsiella, forman=-susceptible - Objective Resuscitation Status: Resuscitation Status FULL:Full Resuscitation MAR Reviewed: Yes Vital Signs & Weight: Vital Signs (12 hours) Temp Pulse Resp BP BP Pulse Ox 06/16/18 11:57 97.5 F L 83 16 122/60 98 06/16/18 08:00 98.2 F 78 16 128/59 L 97 06/16/18 07:40 97 06/16/18 04:38 98 F 75 16 138/65 99 Weight Weight 181 lb I&O: 06/15/18 06/16/18 06/17/18 06:59 06:59 06:59 Intake Total 1440 1050 Output Total 2775 2900 Balance -1335 -1850 Result Diagrams: 06/16/18 04:38 06/16/18 04:38 Additional Labs: Accuchecks 06/16/18 06/16/18 06/16/18 12:47 11:26 05:50 POC Glucose 213 H 208 H 116 H 06/15/18 06/15/18 20:52 17:04 POC Glucose 254 H 319 H Phys Exam - Physical Examination Constitutional: NAD HEENT: PERRLA, moist MMs, sclera anicteric, oral pharynx no lesions Neck: no nodes, no JVD, supple, full ROM Respiratory: no wheezing, no rales, no rhonchi, clear to auscultation bilateral Cardiovascular: RRR, no significant murmur, no rub Gastrointestinal: soft, non-tender, no distention, positive bowel sounds Musculoskeletal: no edema, pulses present Neurological: non-focal, normal sensation, moves all 4 limbs Lymphatic: no nodes Psychiatric: normal affect, A&O x 3 Skin: no rash, normal turgor, cap refill <2 seconds Dx/Plan (1) JOSE (acute kidney injury) Code(s): N17.9 - ACUTE KIDNEY FAILURE, UNSPECIFIED Status: Acute Comment: improving after burr placement (2) CKD (chronic kidney disease) stage 4, GFR 15-29 ml/min Code(s): N18.4 - CHRONIC KIDNEY DISEASE, STAGE 4 (SEVERE) Status: Chronic (3) Bladder outlet obstruction Code(s): N32.0 - BLADDER-NECK OBSTRUCTION Status: Chronic Comment: better with burr (4) BPH NOS w ur obs/LUTS Code(s): N40.1 - BENIGN PROSTATIC HYPERPLASIA WITH LOWER URINARY TRACT SYMP Status: Chronic (5) DM2 (diabetes mellitus, type 2) Status: Chronic Qualifiers: Diabetes mellitus longterm insulin use: without superintendent container terminal use Diabetes mellitus complication status: without complication Qualified Code(s): E11.9 - Type 2 diabetes mellitus without complications - Plan cont current plan of care, burr catheter, continue antibiotics, PT/OT, psych social worker, out of bed/ambulate * .
[2018-06-16 15:48] LABS: ANA Symphony (Qualitative) Negative (Negative); dsDNA IgG Antibody Less than 0.5 IU/mL (<10 Negative)
--- NOTE | 2018-06-16 15:53 | PRG ---
DATE OF SERVICE: 06/16/2018 SUBJECTIVE: The patient did much better overnight, feels the catheter is definitely in a better position or at least more comfortable than before and slept very well. He has no complaints. PHYSICAL EXAMINATION: VITAL SIGNS: On exam, his vitals have been stable. He has had excellent urine output at 2900 for the 24 hours. He is still draining yellow urine and is secured appropriately. LABORATORY DATA: His H and H are relatively stable. His BUN and creatinine have improved, but not as much as we had hoped to 90 and 5.94 and his urine culture is growing Klebsiella pneumoniae, for which he is getting ceftriaxone, which is sensitive. PSA 2.2. ASSESSMENT: In assessment, we have a 63-year-old male with acute on chronic renal failure, exacerbated by bladder outlet obstruction with a catheter now draining the bladder well and making good urine output with the urinary tract infection being treated with ceftriaxone. We reviewed keeping the catheter in until his creatinine has nadired, and then at that point, we can discuss learning CIC as well as the possibility of GreenLight laser vaporization of the prostate if maximum medical therapy doesn't produce adequate voiding. He knows to increase his tamsulosin to twice a day and add finasteride. He should continue these as an outpatient. He also has an abnormal ARMIN but his PSA is only 2.2, so this can monitored as an outpt. JABARI
--- NOTE | 2018-06-16 17:24 | HP ---
DATE OF ADMISSION: 06/14/2018 TIME OF SERVICE: 15:45 PRIMARY CARE PHYSICIAN: Dr. Edwin Glover. PRIMARY STRANDING MACHINE OPERATOR HELPER: Dr. Stewart. CHIEF COMPLAINT: Elevated creatinine, abnormal labs. HISTORY OF PRESENT ILLNESS: Mr. Little is a 63-year-old white male with a known history of chronic kidney disease that is followed with Dr. Stewart. He saw Dr. Stewart in the office on 06/13/2018 and had lab s done on 06/14/2018. He was called and told to go to the emergency department when labs came back a bnormal. He knows his creatinine went from around 6 to around 7 and he was told to come to the emerg ency department for evaluation. Denies any chest pain or shortness of breath. No nausea or vomiting . No fevers or chills. No flank pain. He has felt more fatigued lately. No other current complaints. He does admit to difficulty initiating urinary stream and trickling when he stops, but denies any sup rapubic pain or urgency. PAST MEDICAL HISTORY: 1. Chronic kidney disease diagnosed 12/2017. 2. Diabetes mellitus type 2. PAST SURGICAL HISTORY: Includes abdominal surgery with right for a polyp. This was done over by Dr. Naranjo. HOME MEDICATIONS: 1. Glipizide 5 mg p.o. b.i.d. 2. Flomax 0.4 mg p.o. daily. 3. Iron sulfate b.i.d. ALLERGIES: SULFA caused a rash in the . FAMILY HISTORY: Significant for maternal side with renal problems, but no hemodialysis. SOCIAL HISTORY: No tobacco or alcohol. He is . Denies any IV drug use. REVIEW OF SYSTEMS: All systems reviewed and negative except as per HPI. PHYSICAL EXAMINATION: VITAL SIGNS: Temperature 98.3, pulse 68, blood pressure 128/65, respiratory rate 16, and satting 100 % on room air. GENERAL: He is awake. He is alert. He is oriented x3. He well-developed and well-nourished, white male who appears to be in no acute distress. He is age appropriate. HEENT: Normocephalic, atraumatic. Pupils equal, round, react to light bilaterally. Mucous membrane s are moist. There are no visible lesion or thrush. NECK: Supple. No lymphadenopathy, JVD, or thyromegaly. He has normal carotid upstroke without brui t. LUNGS: Clear to auscultation. He has no wheezes, no rales, no rhonchi. Good air movement. Symmetr ical chest excursion. No prolonged expiratory phase. ABDOMEN: Soft, is nontender, nondistended. No mass. No organomegaly. No CVA tenderness. EXTREMITIES: Showed no cyanosis, no clubbing with trace pedal edema. SKIN: Warm, moist, and well perfused. No rashes or lesions. MUSCULOSKELETAL: Normal to inspection. Large joints are normal. There is no evidence of inflammati on. No palpable effusions. NEUROLOGIC: Cranial nerves II-XII are grossly intact. He has no focal neurologic deficit. Normal s peech. A 5/5 strength in all 4 extremities. LABORATORY DATA: Sodium 132, potassium 5.3, chloride 110, bicarb 11, BUN 109, creatinine 7.54, gluco se of 1.93, calcium 8.2. Liver function within normal limits. CBC show white count 10.9, hemoglobin 7.2, hematocrit of 21.2, platelet count is 285,000, CK-MB normal 2.9, troponin I is undetectable. Ur inalysis showed moderate blood, large leukocyte esterase, greater than 50 white cells, and 1+ bacteri a. His lipase is elevated at 262. ASSESSMENT AND PLAN: 1. Acute kidney injury on top of chronic kidney disease. Etiology is not clear. Urology was consul naty by Dr. Stewart. We will follow up on Dr. Stewart's recommendations. No urgent need for dialysis. Patie nt does have some metabolic acidosis with no evidence of volume overload or hyperkalemia yet. 2. Chronic kidney disease as above. 3. Diabetes mellitus type 2, non-insulin dependent. We do q.i.d. a.c. and at bedtime Accu-Cheks. W e will keep the patient n.p.o. tonight until we find out what he needs in the morning.
[2018-06-16] MEDS: Acetaminophen 325 MG TAB PO PRN (20:59)
[2018-06-16] MEDS: Finasteride 5 MG TAB PO SCH (20:59)
[2018-06-16] MEDS: traZODone HCl 50 MG TAB PO SCH ×3 (21:00→22:28)
[2018-06-17 04:58] LABS: #Basophils 0.1 thou/uL (0.0-0.2); #Eosinphils 0.3 thou/uL (0.0-0.7); #Lymphocytes 1.6 thou/uL (1.20-3.40); #Monocytes 0.5 thou/uL (0.11-0.59); %Basophils 0.7 % (0.0-1.0); %Monocytes 6.8 % (0.0-10.0); %Neutrophils 66.6 % (42.0-75.0); Hemoglobin 7.7 g/dL (14.0-18.0); Mean Corpuscular HGB CONC 33.1 g/dL (32.0-36.0); Mean Corpuscular Hemoglobin 30.8 pg (27.0-31.0); Mean Corpuscular Volume 93.2 fL (78.0-98.0); Mean Platelet Volume 6.6 fL (7.4-10.4); Platelet Count 297 thou/uL (130-400); RBC Distribution Width 14.4 % (11.5-14.5); Red Blood Cell (RBC) Count 2.49 mill/uL (4.70-6.10); White Blood Cell (WBC) Count 7.5 thou/uL (4.8-10.8)
[2018-06-17 05:09] LABS: Anion Gap 13 mmol/L (10-20); BUN (Urea Nitrogen) 80 mg/dL (8.4-25.7); Calc. Creatinine Clearance 15 mL/min (70-130); Calcium 8.6 mg/dL (7.8-10.44); Carbon Dioxide 12 mmol/L (23-31); Chloride 115 mmol/L (98-107); Estimated GFR-MDRD 10; Glucose 150 mg/dL (80-115); Potassium 4.4 mmol/L (3.5-5.1); Sodium 136 mmol/L (136-145)
--- NOTE | 2018-06-17 09:03 | PRG ---
DATE OF SERVICE: 06/17/2018 SUBJECTIVE: Mr. Little is a 63-year-old white male who was admitted for acute kidney injury on top of his chronic renal failure. During initial evaluation he was found to have bilateral hydronephrosi s. A Bello catheter was inserted since the feeling this may be a low bladder outlet obstruction. Re nal function has been slowly improving. Most recent creatinine is noted at 5.57, GFR of 10 mL per mi nute. The issues that this patient may also have an underlying intrinsic renal problem from diabetic nephropathy. His renal function is not completely resolved. Although the creatinine on admission w as noted at 7.54, but this is not dramatically improved back to baseline of about 2.45. My concern i s this patient might have underlying intrinsic renal problem - diabetic nephropathy with a superimpos ed acute renal failure from obstructive uropathy. This morning he complains of abdominal discomfort. The patient complained of being constipated. Den ies any chest pain or shortness of breath. OBJECTIVE: VITAL SIGNS: Blood pressure is 155/68, heart rate 67, respiratory rate 18, temperature 97.5, pulse o x 99% room air. GENERAL: Awake, alert, comfortable, not in distress. SKIN: Adequate turgor. HEENT: He has slightly pale conjunctivae, anicteric sclerae. NECK: No neck mass, no carotid bruits, no JVD. CHEST: No deformities. LUNGS: Clear breath sounds, no wheezing, no crackles. HEART: Normal sinus rhythm. No murmur, no gallops or rubs. ABDOMEN: Globular, soft, nontender. No masses. EXTREMITIES: No edema, no deformities. MEDICATIONS: 06/17/2018 - Reviewed. LABORATORY DATA: 06/17/2018 - White count 7.5, hemoglobin 7.7. Sodium 136, potassium 4.4, chloride 115, carbon dioxide 12, BUN 80, creatinine 5.57, glucose 150, jay jay cium 8.6. ASSESSMENT AND PLAN: 1. Acute kidney injury on top of his chronic renal failure - superimposed bilateral hydronephrosis. The patient has a Bello catheter, slowly improving renal function. Creatinine is noted at 5.57 with a GFR of 10 mL per minute. Continue to observe. No indication for any emergent dialytic interventi on. Continue gentle volume repletion. 2. Anemia, continuing weekly Epogen. 3. Obstructive uropathy - followed up by his urologist. Recheck base met and CBC in the a.m.
[2018-06-17] MEDS: Tamsulosin HCl 0.4 MG CAP PO SCH ×2 (09:24→20:14)
[2018-06-17] MEDS: Famotidine 20 MG TAB PO SCH (09:25)
[2018-06-17] MEDS: Ferrous Sulfate 325 MG TAB PO SCH ×2 (09:25→15:41)
[2018-06-17] MEDS: Sodium Bicarbonate Tab 325 MG TAB PO SCH ×3 (09:26→20:13)
[2018-06-17] MEDS: Heparin 5,000 UNITS/ML VIAL SC SCH ×3 (09:26→20:13)
[2018-06-17] MEDS: cefTRIAXone\\ROCEPHIN 2 GM in Sodium Chloride 0.9% 100 ML IVPB SCH (12:22)
[2018-06-17] MEDS: Acetaminophen 325 MG TAB PO PRN (20:12)
[2018-06-17] MEDS: Finasteride 5 MG TAB PO SCH (20:13)
[2018-06-17] MEDS: traZODone HCl 50 MG TAB PO SCH (20:14)
[2018-06-17] MEDS: HumaLOG 300 UNITS/3 ML VIAL SC PRN (21:53)
--- NOTE | 2018-06-17 22:51 | PDOC.PN ---
- Subjective Encounter Start Date: 06/17/18 Encounter Start Time: 17:00 Patient seen and examined for JOSE. No new complaints. No overnight events - Objective Resuscitation Status: Resuscitation Status FULL:Full Resuscitation MAR Reviewed: Yes Vital Signs & Weight: Vital Signs (12 hours) Temp Pulse Resp BP BP Pulse Ox 06/17/18 20:00 97.8 F 72 18 158/74 H 100 06/17/18 15:40 97.4 F L 74 20 166/74 H 100 Weight Weight 180 lb 9.6 oz I&O: 06/16/18 06/17/18 06/18/18 06:59 06:59 06:59 Intake Total 1050 2822 2250 Output Total 2900 4075 2050 Balance -1850 -1253 200 Result Diagrams: 06/17/18 04:36 06/17/18 04:36 Additional Labs: Accuchecks 06/17/18 06/17/18 06/17/18 20:56 06:08 04:25 POC Glucose 336 H 222 H 155 H EKG Reviewed by me: Yes (Tele SR) Phys Exam - Physical Examination Constitutional: NAD Respiratory: no wheezing, no rhonchi Cardiovascular: RRR, no rub Gastrointestinal: soft, non-tender, positive bowel sounds Musculoskeletal: no edema Neurological: moves all 4 limbs Dx/Plan - Plan DVT proph w/heparin, DVT proph w/SCDs IMPRESSION: 1. JOSE on CKD 4 2. Obstructive uropathy due to BPH 3. Klebsiella UTI 4. DM2 5. Anemia on Epoegen PLAN: Cont Ceftriaxone Cont IVF AM labs DC SQ Heparin due to Anemia Cont Sliding scale Cont other meds as below Review of Systems - Review of Systems Respiratory: negative: Cough, Dry, Shortness of Breath, Hemoptysis, SOB with Excertion, Pleuritic Pain, Sputum, Wheezing Cardiovascular: negative: chest pain, palpitations, orthopnea, paroxysmal nocturnal dyspnea, edema, light headedness, other - Medications/Allergies Allergies/Adverse Reactions: Allergies Allergy/AdvReac Type Severity Reaction Status Date / Time Sulfa (Sulfonamide Allergy Intermediate Rash Verified 06/14/18 17:44 Antibiotics) Medications: Current Medications Acetaminophen (Tylenol) 650 mg PO Q4H PRN PRN Reason: Headache/Fever/Mild Pain (1-3) Last Admin: 06/17/18 20:12 Dose: 650 mg Acetaminophen (Tylenol) 650 mg VA Q4H PRN PRN Reason: Headache/Fever/Mild Pain (1-3) Hydrocodone Bitart/Acetaminophen ([place] 5/325) 1 tab PO Q4H PRN PRN Reason: Moderate Pain (4-6) Hydrocodone Bitart/Acetaminophen ([place] 5/325) 2 tab PO Q4H PRN PRN Reason: Severe Pain (7-10) Last Admin: 06/15/18 00:36 Dose: 2 tab Dextrose/Water (Dextrose 50%) 25 gm SLOW IVP PRN PRN PRN Reason: Hypoglycemia Epoetin Satya (Procrit) 7,500 units SC Q7D@1800 [facility] Last Admin: 06/14/18 18:37 Dose: 7,500 units Famotidine (Pepcid) 20 mg PO 0900 [facility] Ferrous Sulfate (Feosol) 325 mg PO BID[facility] Last Admin: 06/17/18 15:41 Dose: 325 mg Finasteride (Proscar) 5 mg PO Q24H [facility] Last Admin: 06/17/18 20:13 Dose: 5 mg Glucagon (Glucagon) 1 mg IM PRN PRN PRN Reason: Hypoglycemia Heparin Sodium (Porcine) (Heparin) 5,000 units SC TID [facility] Last Admin: 06/17/18 20:13 Dose: 5,000 units Dextrose/Water (D5w) 1,000 mls @ 0 mls/hr IV .Q0M PRN PRN Reason: Hypoglycemia Ceftriaxone Sodium 2 gm/ (Sodium Chloride) 100 mls @ 200 mls/hr IVPB 1200 [facility] Last Admin: 06/17/18 12:22 Dose: 100 mls Sodium Chloride (Normal Saline 0.9%) 1,000 mls @ 100 mls/hr IV .Q10H [facility] Last Admin: 06/16/18 22:28 Dose: 1,000 mls Insulin Human Lispro (Humalog) 0 units SC .MILD SLIDING SCALE PRN PRN Reason: Mild Correctional Scale Last Admin: 06/16/18 17:30 Dose: 3 unit Insulin Human Lispro (Humalog) 0 units SC .BEDTIME SLIDING SC PRN PRN Reason: Bedtime Correctional Scale Last Admin: 06/17/18 21:53 Dose: 4 unit Lactulose (Lactulose) 20 gm PO DAILY [facility] Last Admin: 06/17/18 09:27 Dose: 20 gm Ondansetron HCl (Zofran Odt) 4 mg PO Q6H PRN PRN Reason: Nausea/Vomiting Ondansetron HCl (Zofran) 4 mg IVP Q6H PRN PRN Reason: Nausea/Vomiting Last Admin: 06/17/18 04:19 Dose: 4 mg Sodium Bicarbonate (Bicarbonate, Sodium) 650 mg PO TID [facility] Last Admin: 06/17/18 20:13 Dose: 650 mg Tamsulosin HCl (Flomax) 0.4 mg PO BID [facility] Last Admin: 06/17/18 20:14 Dose: 0.4 mg Trazodone HCl (Desyrel) 50 mg PO [facility] Last Admin: 06/17/18 20:14 Dose: Not Given
[2018-06-17] MEDS: Sodium Chloride 0.9% 1,000 ML IV SCH (23:42)
[2018-06-18] MEDS: Sodium Chloride 0.9% 1,000 ML IV SCH ×3 (02:30→10:04)
[2018-06-18 05:04] LABS: #Eosinphils 0.3 thou/uL (0.0-0.7); #Lymphocytes 1.4 thou/uL (1.20-3.40); #Monocytes 0.6 thou/uL (0.11-0.59); %Basophils 0.1 % (0.0-1.0); %Eosinophils 4.2 % (0.0-10.0); %Lymphocytes 16.5 % (21.0-51.0); %Monocytes 7.3 % (0.0-10.0); Hemoglobin 7.1 g/dL (14.0-18.0); Mean Corpuscular HGB CONC 32.8 g/dL (32.0-36.0); Mean Corpuscular Hemoglobin 30.8 pg (27.0-31.0); Mean Corpuscular Volume 94.1 fL (78.0-98.0); Mean Platelet Volume 6.5 fL (7.4-10.4); Platelet Count 235 thou/uL (130-400); RBC Distribution Width 14.4 % (11.5-14.5); Red Blood Cell (RBC) Count 2.29 mill/uL (4.70-6.10); White Blood Cell (WBC) Count 8.3 thou/uL (4.8-10.8)
[2018-06-18 05:17] LABS: Anion Gap 12 mmol/L (10-20); BUN (Urea Nitrogen) 67 mg/dL (8.4-25.7); Calc. Creatinine Clearance 17 mL/min (70-130); Calcium 8.1 mg/dL (7.8-10.44); Carbon Dioxide 12 mmol/L (23-31); Chloride 117 mmol/L (98-107); Estimated GFR-MDRD 11; Glucose 181 mg/dL (80-115); Potassium 4.2 mmol/L (3.5-5.1); Sodium 137 mmol/L (136-145)
--- NOTE | 2018-06-18 09:06 | PRG ---
DATE OF SERVICE: 06/18/2018 SUBJECTIVE: Mr. Little is a 63-year-old white male who was admitted for an acute kidney injury on t op of his chronic renal failure. Initial evaluation showed he had bilateral hydronephrosis. We felt that there was a low bladder outlet obstruction. Bello catheter has been inserted. There is a slow improvement with the renal function, but the renal function has not gone back to baseline. My suspi cion is he may have an underlying intrinsic renal problem -? of diabetic nephropathy. DIPAK, hepatitis have been negative. In addition, we are still awaiting for ANCA. No new complaints today. The patient denies any chest pain, shortness of breath. OBJECTIVE: VITAL SIGNS: Blood pressure is 164/78, heart rate 62, respiratory rate 17, temperature 98.5, pulse o x 98%. GENERAL: Noted to be awake, alert, supine, comfortable, not in distress. SKIN: Adequate turgor. HEENT: He has pale conjunctivae, anicteric sclerae. NECK: No neck mass, no carotid bruits, no JVD. CHEST: No deformities. LUNGS: Decreased breath sounds. No wheezing, no crackles. HEART: Normal sinus rhythm. No murmur, no gallops or rubs. ABDOMEN: Globular, soft, nontender, no masses. EXTREMITIES: No edema, no deformities. MEDICATIONS: 06/18/2018 - Reviewed. LABORATORY: 06/18/2018 - White count 8.3, hemoglobin 7.1. Sodium 137, potassium 4.2, chloride 117, carbon dioxide 12, BUN 57, creatinine 5.1, GFR 11 mL per minute. Calcium 8.1. ASSESSMENT AND PLAN: 1. Acute kidney injury/chronic renal failure - superimposed obstructive uropathy. Continue Bello ca theter. Continue gentle volume repletion. Renal function has not gone down to baseline, making me s uspect an underlying intrinsic renal problem - most likely diabetic nephropathy. No indication for a ny emergent hemodialysis. Optimize hemodynamics. 2. Anemia. We will transfuse 1 unit packed red blood cells. Continue weekly Epogen. 3. Obstructive uropathy. Urology is following. I agree with current management.
[2018-06-18] MEDS: Tamsulosin HCl 0.4 MG CAP PO SCH ×2 (09:47→22:19)
[2018-06-18] MEDS: Ferrous Sulfate 325 MG TAB PO SCH ×2 (09:47→15:02)
[2018-06-18] MEDS: Famotidine 20 MG TAB PO SCH (09:48)
[2018-06-18] MEDS: Sodium Bicarbonate Tab 325 MG TAB PO SCH ×3 (09:48→22:19)
[2018-06-18] MEDS: HumaLOG 300 UNITS/3 ML VIAL SC PRN ×2 (11:27→17:59)
[2018-06-18] MEDS: cefTRIAXone\\ROCEPHIN 2 GM in Sodium Chloride 0.9% 100 ML IVPB SCH (11:44)
--- NOTE | 2018-06-18 12:42 | PRG ---
DATE OF SERVICE: 06/18/2018 The patient has done well. His creatinine has continued to come down, but still significantly elevat ed at 5.1 and his H&H has come close to transfusion point so he reports that we will plan to transfus e him today. PHYSICAL EXAMINATION: GENERAL: He is sitting comfortably in the chair next to the bed with a Bello catheter draining yell ow urine. His urine culture from admission showed Klebsiella pneumoniae. ASSESSMENT AND PLAN: A 63-year-old male status post catheter placement for bladder outlet obstructio n with renal failure, worsening his chronic renal insufficiency already, now with the catheter adequa tely draining and a UTI on appropriate antibiotics. I would continue outpatient antibiotics for a to susy of 14 days and I will see him in the office for cystoscopy given this urinary tract infection to complete the workup. I will also review with him CIC which he has done in the past and anticipate do ing this in the near future and allowing the finasteride to have a chance to work. In the long run i t may be beneficial to consider surgery, but at this point we will hope that medical therapy is all h e needs.
[2018-06-18 16:16] LABS: Cytoplasmic (C-ANCA) <1:20 titer (Neg:<1:20); Myeloperoxidase AutoAbs <9.0 U/mL (0.0-9.0); Perinuclear (P-ANCA) <1:20 titer (Neg:<1:20); Proteinase-3 AutoAbs Less than 3.5 U/mL (0.0-3.5)
[2018-06-18] MEDS: traZODone HCl 50 MG TAB PO SCH (22:19)
[2018-06-18] MEDS: Finasteride 5 MG TAB PO SCH (22:22)
[2018-06-18] MEDS: HYDROcodone/Acetaminophen 5/325 mg Tablet PO PRN (22:23)
--- NOTE | 2018-06-18 22:23 | PDOC.PN ---
- Subjective Encounter Start Date: 06/18/18 Encounter Start Time: 14:30 Patient seen and examined for JOSE. No new complaints. No overnight events - Objective Resuscitation Status: Resuscitation Status FULL:Full Resuscitation MAR Reviewed: Yes Vital Signs & Weight: Vital Signs (12 hours) Temp Pulse Pulse Resp BP BP Pulse Ox 06/18/18 15:00 97.7 F 59 L 59 L 20 173/75 H 173/75 H 100 06/18/18 11:35 97.4 F L 60 14 100 06/18/18 11:01 97.6 F 58 L 18 99 Weight Weight 185 lb Most Recent Monitor Data NIBP 177/77 I&O: 06/17/18 06/18/18 06/19/18 06:59 06:59 06:59 Intake Total 2822 3930 850 Output Total 4075 3850 950 Balance -1253 80 -100 Result Diagrams: 06/19/18 04:45 06/19/18 04:45 Additional Labs: Accuchecks 06/18/18 06/18/18 06/18/18 16:46 10:43 05:51 POC Glucose 262 H 223 H 194 H 06/17/18 06/17/18 17:04 11:35 POC Glucose 182 H 142 H EKG Reviewed by me: Yes (Tele SR) Phys Exam - Physical Examination Constitutional: NAD Respiratory: no wheezing, no rhonchi Cardiovascular: RRR, no rub Gastrointestinal: soft, non-tender, positive bowel sounds Musculoskeletal: no edema Neurological: moves all 4 limbs Dx/Plan - Plan DVT proph w/SCDs IMPRESSION: 1. JOSE on CKD 4 - improving 2. Obstructive uropathy due to BPH 3. Klebsiella UTI - on Ceftriaxone 4. DM2 - on sliding scale 5. Anemia on Epoegen PLAN: Cont Atbx Cont IVF AM labs Cont current meds as below Review of Systems - Review of Systems Respiratory: negative: Cough, Dry, Shortness of Breath, Hemoptysis, SOB with Excertion, Pleuritic Pain, Sputum, Wheezing Cardiovascular: negative: chest pain, palpitations, orthopnea, paroxysmal nocturnal dyspnea, edema, light headedness, other - Medications/Allergies Allergies/Adverse Reactions: Allergies Allergy/AdvReac Type Severity Reaction Status Date / Time Sulfa (Sulfonamide Allergy Intermediate Rash Verified 06/14/18 17:44 Antibiotics) Medications: Current Medications Acetaminophen (Tylenol) 650 mg PO Q4H PRN PRN Reason: Headache/Fever/Mild Pain (1-3) Last Admin: 06/17/18 20:12 Dose: 650 mg Acetaminophen (Tylenol) 650 mg AR Q4H PRN PRN Reason: Headache/Fever/Mild Pain (1-3) Hydrocodone Bitart/Acetaminophen ([place] 5/325) 1 tab PO Q4H PRN PRN Reason: Moderate Pain (4-6) Hydrocodone Bitart/Acetaminophen ([place] 5/325) 2 tab PO Q4H PRN PRN Reason: Severe Pain (7-10) Last Admin: 06/15/18 00:36 Dose: 2 tab Dextrose/Water (Dextrose 50%) 25 gm SLOW IVP PRN PRN PRN Reason: Hypoglycemia Epoetin Satya (Procrit) 7,500 units SC Q7D@1800 [facility] Last Admin: 06/14/18 18:37 Dose: 7,500 units Famotidine (Pepcid) 20 mg PO 0900 [facility] Last Admin: 06/18/18 09:48 Dose: 20 mg Ferrous Sulfate (Feosol) 325 mg PO BID-WM [facility] Last Admin: 06/18/18 15:02 Dose: 325 mg Finasteride (Proscar) 5 mg PO Q24H [facility] Last Admin: 06/17/18 20:13 Dose: 5 mg Glucagon (Glucagon) 1 mg IM PRN PRN PRN Reason: Hypoglycemia Dextrose/Water (D5w) 1,000 mls @ 0 mls/hr IV .Q0M PRN PRN Reason: Hypoglycemia Ceftriaxone Sodium 2 gm/ (Sodium Chloride) 100 mls @ 200 mls/hr IVPB 1200 [facility] Last Admin: 06/18/18 11:44 Dose: 100 mls Sodium Chloride (Normal Saline 0.9%) 1,000 mls @ 100 mls/hr IV .Q10H [facility] Last Admin: 06/18/18 10:04 Dose: 1,000 mls Insulin Human Lispro (Humalog) 0 units SC .MILD SLIDING SCALE PRN PRN Reason: Mild Correctional Scale Last Admin: 06/18/18 17:59 Dose: 4 unit Insulin Human Lispro (Humalog) 0 units SC .BEDTIME SLIDING SC PRN PRN Reason: Bedtime Correctional Scale Last Admin: 06/17/18 21:53 Dose: 4 unit Lactulose (Lactulose) 20 gm PO DAILY [facility] Last Admin: 06/18/18 09:47 Dose: 20 gm Ondansetron HCl (Zofran Odt) 4 mg PO Q6H PRN PRN Reason: Nausea/Vomiting Ondansetron HCl (Zofran) 4 mg IVP Q6H PRN PRN Reason: Nausea/Vomiting Last Admin: 06/17/18 04:19 Dose: 4 mg Sodium Bicarbonate (Bicarbonate, Sodium) 650 mg PO TID [facility] Last Admin: 06/18/18 15:02 Dose: 650 mg Tamsulosin HCl (Flomax) 0.4 mg PO BID [facility] Last Admin: 06/18/18 09:47 Dose: 0.4 mg Trazodone HCl (Desyrel) 50 mg PO HS [facility] Last Admin: 06/17/18 20:14 Dose: Not Given
[2018-06-19] MEDS: Sodium Chloride 0.9% 1,000 ML IV SCH (01:51)
[2018-06-19 05:53] LABS: #Basophils 0.1 thou/uL (0.0-0.2); #Eosinphils 0.4 thou/uL (0.0-0.7); #Lymphocytes 2.3 thou/uL (1.20-3.40); #Monocytes 0.5 thou/uL (0.11-0.59); #Neutrophils 6.1 thou/uL (1.40-6.50); %Basophils 0.5 % (0.0-1.0); %Eosinophils 3.9 % (0.0-10.0); %Monocytes 5.6 % (0.0-10.0); Hemoglobin 7.6 g/dL (14.0-18.0); Mean Corpuscular HGB CONC 33.3 g/dL (32.0-36.0); Mean Corpuscular Hemoglobin 30.7 pg (27.0-31.0); Mean Corpuscular Volume 92.3 fL (78.0-98.0); Platelet Count 225 thou/uL (130-400); RBC Distribution Width 15.8 % (11.5-14.5); Red Blood Cell (RBC) Count 2.48 mill/uL (4.70-6.10); White Blood Cell (WBC) Count 9.4 thou/uL (4.8-10.8)
[2018-06-19 06:12] LABS: Anion Gap 11 mmol/L (10-20); BUN (Urea Nitrogen) 56 mg/dL (8.4-25.7); Calc. Creatinine Clearance 19 mL/min (70-130); Carbon Dioxide 15 mmol/L (23-31); Chloride 116 mmol/L (98-107); Estimated GFR-MDRD 13; Glucose 119 mg/dL (80-115); Potassium 4.5 mmol/L (3.5-5.1); Sodium 137 mmol/L (136-145)
[2018-06-19] MEDS: Sodium Bicarbonate Tab 325 MG TAB PO SCH (09:02)
[2018-06-19] MEDS: Ferrous Sulfate 325 MG TAB PO SCH (09:03)
[2018-06-19] MEDS: Tamsulosin HCl 0.4 MG CAP PO SCH (09:03)
[2018-06-19] MEDS: Famotidine 20 MG TAB PO SCH (09:03)
--- NOTE | 2018-06-19 10:01 | PRG ---
DATE OF SERVICE: 06/19/2018 SUBJECTIVE: Mr. Little is a 63-year-old white male who was admitted for progressive azotemia. Empi sosa volume repletion has been given. He was also found to have bilateral hydronephrosis from a low b ladder outlet obstruction. Bello catheter has been placed. He is slowly improving with his renal fu nction. Most recent creatinine is now 4.9. No complaints of chest pain or shortness of breath. PHYSICAL EXAMINATION: VITAL SIGNS: Blood pressure is 166/74, heart rate 73, respiratory rate 18, temperature 97.9, pulse o x 98%. GENERAL: Awake, alert, comfortable, not in distress. SKIN: Adequate turgor. HEENT: Slightly pale conjunctivae, anicteric sclerae. NECK: No neck mass, no carotid bruits, no JVD. CHEST: No deformities. LUNGS: Clear breath sounds. HEART: Normal sinus rhythm. No murmur, no gallops, no rubs. ABDOMEN: Globular, soft, nontender, no masses. EXTREMITIES: No edema. MEDICATIONS: 06/19/2018 - Reviewed. LABORATORY: 06/19/2018 - White count 9.4, hemoglobin 7.6. Sodium 137, potassium 4.5, chloride 106, carbon dioxide 15, BUN 56, creatinine 4.57, glucose 119, calcium 8. ASSESSMENT AND PLAN: 1. Acute kidney injury - secondary to superimposed low bladder outlet obstruction/diabetic nephropat hy - slowly improving renal function. Most recent creatinine is now noted at 4.57 with a GFR of 13 m L per minute. There is no indication for any dialytic intervention. 2. Metabolic acidosis. Continue sodium bicarbonate. 3. Anemia, p.r.n. blood transfusion. Continue Epogen - weekly dosing. I agree with current management. Okay for discharge any time and will follow up at [facility].
[2018-06-19 10:41] VITALS: BP 184/85; TEMP 97.4
[2018-06-19] MEDS: cefTRIAXone\\ROCEPHIN 2 GM in Sodium Chloride 0.9% 100 ML IVPB SCH (12:10)
--- NOTE | 2018-06-19 21:40 | DIS ---
DATE OF DISCHARGE: 06/19/2018 DISCHARGE DISPOSITION: Home. FOLLOWUP: 1. Follow up with primary care physician, Dr. Edwin Glover in 1 week. 2. Follow up with Nephrology, Dr. Stewart in one week. 3. Follow up with Urology, Dr. Beena Montgomery in one week. ALLERGIES: Patient is allergic to SULFA. Patient was seen and examined on the day of discharge, denies any new complaints. DISCHARGE MEDICATIONS: 1. Ciprofloxacin 250 mg daily for 7 days. 2. Proscar 5 mg daily. 3. Flomax 0.4 mg b.i.d. 4. All other home medications were resumed. BRIEF HOSPITAL COURSE: Patient is a 63-year-old male with chronic kidney disease, and diabetes hong bry type 2, presented to the hospital from Dr. Stewart's office due to acute kidney injury. His BUN was 109 with creatinine 7.54. Please refer to the history and physical dated 06/14/2018 by srinivas Xie or further details. The patient was admitted to the hospital with a diagnosis of acute kidney injury secondary to post-ob structive uropathy. A renal ultrasound showed bilateral hydronephrosis. The patient was seen by Nep hrology as well as Urology. Flomax dose has been increased to 0.4 mg twice a day. Proscar has been added. He will complete total of 14 days of antibiotics and will follow up with the Urology for cyst oscopy. He has been cleared by Urology and Nephrology for discharge. FINAL DIAGNOSES: 1. Acute kidney injury on chronic kidney disease stage 4 secondary to obstructive uropathy. 2. Benign prostatic hypertrophy. 3. Klebsiella urinary tract infection. 4. Diabetes mellitus type 2. 5. Anemia status post Epogen. 6. Please note that patient was advised to reduce the glipizide dose to 2.5 mg daily due to acute ki dney injury. He normally takes 5 mg twice a day. 7. Metabolic acidosis. 8. Secondary hyperparathyroidism. His PTH was 118. 9. Hyperkalemia on admission, resolved. 10. Hyponatremia. DIAGNOSTIC TESTS: DIPAK was negative. Anti-double stranded DNA was negative. Hepatitis B surface ant igen and hepatitis C antibody was negative. Urine culture showed Klebsiella pneumoniae, pansensitive . Plan of care was discussed with the patient in detail. He stated understanding.
== END 2018-06-19 14:39 | disposition home or self-care (01) | DRG 683 ==
LOC: ERS 10:55 → 2NO 17:18 → ONC 06-19 08:10
PROVIDERS: ADMIT Internal Medicine Infectious Disease; ATTEND Internal Medicine Infectious Disease
PROC: 30233N1 Transfusion of Nonautologous Red Blood Cells into Peripheral Vein, Percutaneous Approach (ICD-10-PCS; principal; 2018-06-18)
DX: N17.9 Acute kidney failure, unspecified (principal); E87.2 Acidosis; N39.0 Urinary tract infection, site not specified; E87.1 Hypo-osmolality and hyponatremia; N18.4 Chronic kidney disease, stage 4 (severe); N13.30 Unspecified hydronephrosis; N32.0 Bladder-neck obstruction; N40.1 Benign prostatic hyperplasia with lower urinary tract symptoms; E11.22 Type 2 diabetes mellitus with diabetic chronic kidney disease; Z79.899 Other long term (current) drug therapy; Z88.2 Allergy status to sulfonamides; Z86.010 Personal history of colon polyps; B96.1 Klebsiella pneumoniae [K. pneumoniae] as the cause of diseases classified elsewhere; N13.9 Obstructive and reflux uropathy, unspecified; E21.3 Hyperparathyroidism, unspecified
CPT/HCPCS: 36415; 36416; 36430; 51702; 76770; 80048; 80053; 81003; 81015; 82550; 82553; 83520; 83690; 83970; 84484; 85025; 86038; 86225; 86256; 86803; 86850; 86900; 86901; 87077; 87086; 87186; 87340; 93005; 96361; 96374; 96375; G0103; J0696; J1644; J1815; J2405; J7050; P9016; Q4081

== ENCOUNTER 2018-09-27 11:57 | Outpatient (CLI) | payer MEDICARE, OTHER ==
[2018-09-27 12:54] LABS: Hemoglobin 10.9 g/dL (14.0-18.0); Mean Corpuscular HGB CONC 34.4 g/dL (32.0-36.0); Mean Corpuscular Hemoglobin 32.2 pg (27.0-31.0); Mean Corpuscular Volume 93.4 fL (78.0-98.0); Mean Platelet Volume 7.6 fL (7.4-10.4); Platelet Count 178 thou/uL (130-400); RBC Distribution Width 13.5 % (11.5-14.5); Red Blood Cell (RBC) Count 3.39 mill/uL (4.70-6.10); White Blood Cell (WBC) Count 9.8 thou/uL (4.8-10.8)
[2018-09-27 13:18] LABS: Anion Gap 17 mmol/L (10-20); BUN (Urea Nitrogen) 77 mg/dL (8.4-25.7); Calc. Creatinine Clearance 0 mL/min (70-130); Calcium 9.1 mg/dL (7.8-10.44); Carbon Dioxide 18 mmol/L (23-31); Chloride 107 mmol/L (98-107); Estimated GFR-MDRD 12; Glucose 100 mg/dL (80-115); Potassium 5.7 mmol/L (3.5-5.1); Sodium 136 mmol/L (136-145)
== END 2018-09-27 11:58 | disposition home or self-care (01) ==
LOC: LABBT 11:57
PROVIDERS: ATTEND Urology
DX: Z01.812 Encounter for preprocedural laboratory examination (principal); R33.9 Retention of urine, unspecified; N39.0 Urinary tract infection, site not specified; R68.89 Other general symptoms and signs; N13.30 Unspecified hydronephrosis; R39.14 Feeling of incomplete bladder emptying; N40.1 Benign prostatic hyperplasia with lower urinary tract symptoms
CPT/HCPCS: 80048; 81001; 85027; 87077; 87086; 87186

== ENCOUNTER 2018-10-01 06:40 | Day surgery (SDC) | payer MEDICARE, OTHER ==
[2018-09-27 12:19] VITALS: BMI 27.2
[2018-10-01] MEDS ORDERED: cefTRIAXone\\ROCEPHIN 1 GM in Sodium Chloride 0.9% 100 ML IVPB SCH (07:45)
[2018-10-01] MEDS ORDERED: Bacitracin Zinc Ointment 30 gm TUBE ONE (07:51)
[2018-10-01] MEDS ORDERED: Bupivacaine HCl 0.25%/Epi 0.0005/PF 10 ML VIAL FS ONE ×2 (07:51)
[2018-10-01] MEDS ORDERED: Furosemide 20 MG/2 ML VIAL ONE (07:51)
[2018-10-01] MEDS ORDERED: Dexamethasone 4 mg/ml Vial SLOW IVP SCH (08:00)
[2018-10-01] MEDS ORDERED: Lidocaine 1% w/Epinephrine 1:100K 20 ML VIAL ONE (08:13)
[2018-10-01] MEDS ORDERED: Lidocaine 1% (PF) 30 ML VIAL ONE (08:13)
[2018-10-01] MEDS ORDERED: Bupivacaine 0.25% HCL 30 ML VIAL ONE (08:14)
[2018-10-01] MEDS ORDERED: Fentanyl 100 MCG/2 ML VIAL ONE (08:17)
[2018-10-01] MEDS ORDERED: Dexamethasone 4 mg/ml Vial ONE (08:18)
[2018-10-01] MEDS ORDERED: B & O ONE (09:09)
[2018-10-01] MEDS ORDERED: Rocuronium Bromide 10 MG/ML (10ML VIAL) ONE (15:48)
[2018-10-01] MEDS ORDERED: ePHEDrine/0.9% NaCl/PF SYRINGE 50 mg/10 ml ONE (15:48)
[2018-10-01] MEDS ORDERED: Ondansetron PF 4 MG/2 ML Vial ONE (15:48)
[2018-10-01] MEDS ORDERED: PROPOFOL 200 MG/20 ML VIAL ONE (15:48)
[2018-10-01] MEDS ORDERED: Lidocaine 1% PF 5 ML VIAL ONE (15:48)
[2018-10-01] MEDS ORDERED: PHENYLEPHRINE-NS 100 MCG/ML 10 ML SYRINGE ONE (15:48)
[2018-10-01] MEDS ORDERED: Glycopyrrolate 0.2 MG/ML 5 ML SYRINGE ONE (15:48)
--- NOTE | 2018-10-01 19:35 | OP ---
DATE OF PROCEDURE: 10/01/2018 PREOPERATIVE DIAGNOSES: 1. BPH. 2. Retention. 3. Urinary tract infections. POSTOPERATIVE DIAGNOSES: 1. BPH. 2. Retention. 3. Urinary tract infections. PROCEDURE PERFORMED: GreenLight laser vaporization of prostate using [id number] joules as well as circumcision. ANESTHESIA: General with laryngeal mask airway and penile block using 10 mL of Marcaine. SPECIMENS: Prostate. COMPLICATIONS: None. FINDINGS: Adequate opening of the prostatic urethra, good stream noted when the scope was removed and standard circumcision. DESCRIPTION OF PROCEDURE: The patient was brought to the room by Anesthesia, laid on the table in supine position. After receiving general anesthetic, his legs were placed in lithotomy position. His perineum was prepped and draped in a sterile fashion. Using a 22.5-Emirati cystoscope and 30 degree lens, urethra was traversed. The bladder inspected. Ureteral orifices were identified and preserved throughout the case. The bladder neck was taken down to the floor, and the trigonal ridge was elevated with a trough behind it. I took this down only using the power level of 80. There was still some very large trabeculations beyond that area of the trigonal ridge that was taken down, but I did not feel that was appropriate to further take that down, so a power level of 80 was also used at the bladder neck on the lateral lobes and a power level of 180 was used for the midgland. Again, 80 was used at the veru and the portions of the lateral lobes were removed in a wedge fashion, so there was some tissue that was extracted. One chip was large enough to use a grasper, but otherwise there was no significant enucleation. When the scope was removed with good stream was noted, the scope was put back in. The bladder decompressed. Hemostasis ensured. A power level of 80 was used to paint the prostatic bed to ensure hemostasis and then at this point, the scope was removed final time and the 20-Emirati two-way was placed to gravity. Then, in the same position, gloves were changed, but the patient was already prepped, and a penile block was then performed for the circumcision. Two circumferential incisions were made, one with the foreskin reduced to the level of the sunny and the other with the foreskin retracted, 5 mm proximal to the groin to the sunny. This was sharply excised, and then hemostasis was used with electrocautery. The two skin edges were then reapproximated with 3-0 and 4-0 chromic in interrupted fashion. Bacitracin was applied to the wound, and a sterile dressing was placed. The patient was then awakened and transferred to PACU in stable condition. Job ID: [id number]
== END 2018-10-01 12:22 | disposition home or self-care (01) ==
LOC: SDC 06:40
PROVIDERS: ATTEND Urology
PROC: 0VT08ZZ Resection of Prostate, Via Natural or Artificial Opening Endoscopic (ICD-10-PCS; principal; 2018-10-01)
DX: N40.1 Benign prostatic hyperplasia with lower urinary tract symptoms (principal); R33.8 Other retention of urine; N13.30 Unspecified hydronephrosis; R68.89 Other general symptoms and signs; N39.0 Urinary tract infection, site not specified; Z88.1 Allergy status to other antibiotic agents; Z88.2 Allergy status to sulfonamides; Z79.899 Other long term (current) drug therapy
CPT/HCPCS: 88305; J0696; J1100; J1940; J2001; J2405; J2704; J3010; J7050; S0020

== ENCOUNTER 2019-07-03 19:29 | Emergency (ER) | payer MEDICARE, OTHER ==
[2019-07-03] MEDS ORDERED: Morphine 4 MG/ML VIAL ONE ×2 (20:26→23:40)
[2019-07-03] MEDS ORDERED: Ondansetron PF 4 MG/2 ML Vial ONE (20:26)
[2019-07-03 20:41] LABS: #Basophils 0.1 thou/uL (0.0-0.2); #Eosinphils 0.3 thou/uL (0.0-0.7); #Lymphocytes 1.7 thou/uL (1.20-3.40); #Monocytes 0.8 thou/uL (0.11-0.59); #Neutrophils 6.3 thou/uL (1.40-6.50); %Basophils 0.6 % (0.0-1.0); %Eosinophils 3.7 % (0.0-10.0); %Lymphocytes 18.9 % (21.0-51.0); %Monocytes 8.2 % (0.0-10.0); %Neutrophils 68.6 % (42.0-75.0); Hemoglobin 8.8 g/dL (14.0-18.0); Mean Corpuscular HGB CONC 35.9 g/dL (32.0-36.0); Mean Corpuscular Volume 94.7 fL (78.0-98.0); Mean Platelet Volume 7.7 fL (7.4-10.4); Platelet Count 177 thou/uL (130-400); RBC Distribution Width 13.5 % (11.5-14.5); Red Blood Cell (RBC) Count 2.59 mill/uL (4.70-6.10); White Blood Cell (WBC) Count 9.2 thou/uL (4.8-10.8)
--- NOTE | 2019-07-03 20:53 | RAD ---
PORTABLE AP CHEST X-RAY: 07/03/19 HISTORY: Left leg swelling and pain. Hypertension. COMPARISON: None. FINDINGS: The cardiac silhouette is magnified by projection but does appear at the upper limits of normal to trae rderline enlarged. The pulmonary vasculature is within normal limits. The lungs are clear. Degenerati ve changes are seen in the spine. IMPRESSION: 1. Upper limits of normal to borderline cardiomegaly. 2. No acute cardiopulmonary process. POS: [facility]
[2019-07-03 20:56] LABS: ALT (SGPT) 18 U/L (8-55); AST (SGOT) 23 U/L (5-34); Albumin 4.1 g/dL (3.4-4.8); Alkaline Phosphatase 81 U/L (40-110); Anion Gap 14 mmol/L (10-20); BUN (Urea Nitrogen) 60 mg/dL (8.4-25.7); CK (CPK) 173 U/L (30-200); Calc. Creatinine Clearance 0 mL/min (70-130); Calcium 8.5 mg/dL (7.8-10.44); Carbon Dioxide 18 mmol/L (23-31); Chloride 107 mmol/L (98-107); Estimated GFR-MDRD 12; Globulin 3.2 g/dL (2.4-3.5); Glucose 204 mg/dL (80-115); Potassium 4.4 mmol/L (3.5-5.1); Protein, Total 7.3 g/dL (5.8-8.1); Sodium 135 mmol/L (136-145)
--- NOTE | 2019-07-03 22:37 | CT ---
NONCONTRAST CT LEFT LOWER EXTREMITY: 07/03/19 HISTORY: Abnormality noted in subcutaneous soft tissues on ultrasound examination. Patient has left lower extr emity pain and swelling. FINDINGS: There is increased density seen with enlargement of the left sartorius muscle with extension of the a cat of increased density from the level of the proximal femoral diaphysis to the distal femoral diaph ysis. The total length of this area of increased density within the muscle measures 20 cm craniocauda l x 4.6 cm AP x 3.8 cm transverse in greatest dimensions. The findings are most suggestive of an intr amuscular hematoma. Underlying lesion could not be entirely excluded. The findings may be related to injury. There is mild subcutaneous soft tissue swelling involving the left lower extremity with greater subcu taneous edema at the level of the most proximal visualized knee. Vascular calcifications are seen in the femoral arteries and popliteal artery. No fracture is seen involving the left femur. No lytic or sclerotic osseous lesion is seen. There is mild osteoarthritis involving the left hip and knee. IMPRESSION: Findings most suggestive of an intramuscular hematoma involving the left sartorius extending for a le ngth of approximately 20 cm. Follow-up evaluation is recommended to ensure resolution and to ensure t hat there is no underlying lesion. POS: [facility]
--- NOTE | 2019-07-03 23:37 | ULT ---
LEFT LOWER EXTREMITY VENOUS DOPPLER WITH SPECTRAL ANALYSIS AND COLOR FLOW EVALUATION: 07/03/19 HISTORY: Left lower extremity swelling and pain. FINDINGS: Purcell scale, color flow, Doppler evaluation, with spectral analysis of the left lower extremity venous structures is performed with 2D imaging. The left lower extremity common femoral, superficial femora l, popliteal, posterior tibial, most proximal greater saphenous and profunda femoral veins are imaged . There is normal lumen compressibility, flow, and augmentation of the visualized deep venous structure s of the left lower extremity. In region of patient's ecchymosis, there is subcutaneous soft tissue swelling as well as a heterogene ous area which appears to be in the region of the medial thigh musculature. This area of heterogeneit y is difficult to accurately measure, but measures approximately 11.3 cm x 3.4 cm x 5 cm with an jalyn tional heterogeneous area seen superomedial to the left knee measuring 3.5 cm x 1.9 cm x 2.9 cm. Musella r flow evaluation of this area does not demonstrate flow. The findings are likely related to large in tramuscular hematoma; however, infection cannot be entirely excluded. IMPRESSION: 1. Large heterogeneous mass-like structure in the medial left thigh musculature worrisome for a large intramuscular hematoma especially in the setting of trauma and given overlying ecchymosis. Oth er etiologies, while a possibility, are thought less likely. Follow up evaluation is recommended to ensure resolution. 2. No evidence of a DVT involving the visualized deep venous structures left lower extremity. POS: [facility]
== END 2019-07-03 23:55 | disposition home or self-care (01) ==
LOC: ERS 19:29
DX: M79.81 Nontraumatic hematoma of soft tissue (principal); E11.9 Type 2 diabetes mellitus without complications; Z79.84 Long term (current) use of oral hypoglycemic drugs
CPT/HCPCS: 36415; 71045; 80053; 82550; 84484; 85025; 85379; 96374; 96375; 96376; J2270; J2405

== ENCOUNTER 2023-04-11 13:12 | Outpatient (CLI) | payer MEDICARE, OTHER | END 2023-04-11 13:13 | disposition home or self-care (01) | LOC: RAD 13:12 | PROVIDERS: ATTEND Internal Medicine Nephrology | DX: N18.5 Chronic kidney disease, stage 5 (principal) | CPT/HCPCS: 71046 ==

== ENCOUNTER 2023-05-11 11:42 | Outpatient (CLI) | payer MEDICARE, OTHER | END 2023-05-11 11:43 | disposition home or self-care (01) | LOC: RAD 11:42 | PROVIDERS: ATTEND Internal Medicine Nephrology | DX: N18.5 Chronic kidney disease, stage 5 (principal) | CPT/HCPCS: 71046 ==

== ENCOUNTER 2023-08-25 03:30 | Emergency (ER) | payer MEDICARE, OTHER ==
[2023-08-25 04:34] LABS: #Eosinphils 0.5 thou/uL (0.0-0.7); #Monocytes 1.1 thou/uL (0.11-0.59); #Neutrophils 5.8 thou/uL (1.40-6.50); %Basophils 0.4 % (0.0-1.0); %Eosinophils 5.4 % (0.0-10.0); %Lymphocytes 13.3 % (21.0-51.0); %Monocytes 12.6 % (0.0-10.0); %Neutrophils 67.8 % (42.0-75.0); Mean Corpuscular HGB CONC 35.7 g/dL (32.0-36.0); Mean Corpuscular Hemoglobin 32.8 pg (27.0-31.0); Mean Corpuscular Volume 91.8 fl (78.0-98.0); Platelet Count 193 10x3/uL (130-400); RBC Distribution Width 12.6 % (11.5-14.5); Red Blood Cell (RBC) Count 3.05 mill/uL (4.70-6.10); White Blood Cell (WBC) Count 8.5 10x3/uL (4.8-10.8)
[2023-08-25 05:01] LABS: ALT (SGPT) 34 U/L (8-55); AST (SGOT) 33 U/L (5-34); Albumin 3.4 g/dL (3.4-4.8); Alkaline Phosphatase 130 U/L (40-110); Anion Gap 14 mmol/L (10-20); BUN (Urea Nitrogen) 35 mg/dL (8.4-25.7); Bilirubin, Total 0.9 mg/dL (0.2-1.2); Calc. Creatinine Clearance 0 mL/min (70-130); Calcium 8.7 mg/dL (7.8-10.44); Carbon Dioxide 27 mmol/L (23-31); Chloride 97 mmol/L (98-107); Estimated GFR 15; Globulin 2.8 g/dL (2.4-3.5); Glucose 109 mg/dL (80-115); Potassium 3.7 mmol/L (3.5-5.1); Protein, Total 6.2 g/dL (5.8-8.1); Sodium 134 mmol/L (136-145)
[2023-08-25 05:03] LABS: Troponin I 0.021 ng/mL (< 0.028)
== END 2023-08-25 07:21 | disposition home or self-care (01) ==
LOC: ERS 03:30
DX: R06.6 Hiccough (principal); E11.22 Type 2 diabetes mellitus with diabetic chronic kidney disease; N18.6 End stage renal disease; Z99.2 Dependence on renal dialysis
CPT/HCPCS: 71045; 71250; 74177; 80053; 84484; 85025; 93005

== ENCOUNTER 2024-04-26 01:56 | Inpatient (IN) | payer MEDICARE, OTHER ==
[2024-04-26 02:38] LABS: #Basophils Less than 0.03 10x3/uL (0.0-0.2); %Basophils 0.3 % (0.0-1.0); %Eosinophils 1.9 % (0.0-10.0); %Monocytes 8.6 % (0.0-10.0); %Neutrophils 79.7 % (42.0-75.0); Hematocrit 31.6 % (42.0-52.0); Hemoglobin 11.6 g/dL (14.0-18.0); Mean Corpuscular HGB CONC 36.7 g/dL (32.0-36.0); Mean Corpuscular Hemoglobin 33.5 pg (27.0-31.0); Mean Corpuscular Volume 91.3 fL (78.0-98.0); Platelet Count 180 10x3/uL (130-400); RBC Distribution Width 12.7 % (11.5-14.5); Red Blood Cell (RBC) Count 3.46 mill/uL (4.70-6.10)
[2024-04-26 02:57] LABS: ALT (SGPT) 31 U/L (8-55); AST (SGOT) 26 U/L (5-34); Albumin 3.6 g/dL (3.4-4.8); Alkaline Phosphatase 142 U/L (40-110); Anion Gap 18 mmol/L (10-20); BUN (Urea Nitrogen) 54 mg/dL (8.4-25.7); Bilirubin, Total 1.2 mg/dL (0.2-1.2); Calc. Creatinine Clearance 0 mL/min (70-130); Calcium 8.1 mg/dL (7.8-10.44); Carbon Dioxide 17 mmol/L (23-31); Chloride 98 mmol/L (98-107); Estimated GFR 15; Glucose 207 mg/dL (80-115); Lipase 88 U/L (8-78); Magnesium 1.3 mg/dL (1.6-2.6); Potassium 3.3 mmol/L (3.5-5.1); Protein, Total 6.6 g/dL (5.8-8.1); Sodium 130 mmol/L (136-145)
[2024-04-26] MEDS ORDERED: Acetaminophen 325 MG TAB PO PRN (09:34)
[2024-04-26] MEDS ORDERED: Ondansetron PF 4 MG/2 ML Vial IVP PRN (09:37)
[2024-04-26] MEDS ORDERED: Dextrose 5% in Water 1,000 ML IV PRN (11:33)
[2024-04-26] MEDS ORDERED: Insulin Regular, Human 100 UNIT/ML 10 ML VIAL SC PRN (11:33)
[2024-04-26] MEDS ORDERED: Dextrose 50% Abboject 50 ML SYRINGE SLOW IVP PRN (11:33)
[2024-04-26] MEDS ORDERED: Glucagon 1 MG/ML KIT IM PRN (11:33)
[2024-04-26] MEDS ORDERED: Non-Formulary Item 1 EACH (Acetaminophen [Tylenol] 325 MG Capsule) PO PRN (11:36)
[2024-04-26] MEDS: Lactated Ringer's 1,000 ML IV SCH (12:10)
[2024-04-26] MEDS: Sodium Bicarbonate Tab 325 MG TAB PO SCH (14:15)
[2024-04-26] MEDS: Potassium Chloride 20 MEQ in Premix 1 BAG IVPB SCH (14:16)
[2024-04-26] MEDS: Magnesium Sulfate In Water 4 GM in Premix 1 BAG IVPB SCH (14:16)
[2024-04-26] MEDS ORDERED: Iopamidol-370 76% 500 ML MDV (1 ML CHARGE) ONE (15:38)
[2024-04-26] MEDS: Atorvastatin Calcium 20 MG TAB PO SCH (21:11)
[2024-04-26] MEDS: Pantoprazole DR 40 MG TAB PO SCH (21:11)
[2024-04-26] MEDS: Carvedilol 3.125 MG TAB PO SCH (21:11)
[2024-04-26] MEDS: Calcitriol 0.25 MCG CAP PO SCH (21:11)
[2024-04-26] MEDS: Tamsulosin HCl 0.4 MG CAP PO SCH (21:12)
[2024-04-27 06:24] LABS: #Basophils Less than 0.03 10x3/uL (0.0-0.2); %Basophils 0.3 % (0.0-1.0); %Eosinophils 1.8 % (0.0-10.0); %Lymphocytes 14.4 % (21.0-51.0); %Monocytes 10.8 % (0.0-10.0); %Neutrophils 72.1 % (42.0-75.0); Hematocrit 30.6 % (42.0-52.0); Hemoglobin 11.1 g/dL (14.0-18.0); Mean Corpuscular HGB CONC 36.3 g/dL (32.0-36.0); Mean Corpuscular Hemoglobin 33.9 pg (27.0-31.0); Mean Corpuscular Volume 93.6 fL (78.0-98.0); Mean Platelet Volume 10.1 fL (7.4-10.4); Platelet Count 187 10x3/uL (130-400); RBC Distribution Width 12.6 % (11.5-14.5); Red Blood Cell (RBC) Count 3.27 mill/uL (4.70-6.10)
[2024-04-27 06:44] LABS: ALT (SGPT) 26 U/L (8-55); AST (SGOT) 23 U/L (5-34); Albumin 3.2 g/dL (3.4-4.8); Alkaline Phosphatase 135 U/L (40-110); Anion Gap 15 mmol/L (10-20); BUN (Urea Nitrogen) 49 mg/dL (8.4-25.7); Bilirubin, Total 1.2 mg/dL (0.2-1.2); Calc. Creatinine Clearance 19 mL/min (70-130); Calcium 8.3 mg/dL (7.8-10.44); Carbon Dioxide 20 mmol/L (23-31); Chloride 102 mmol/L (98-107); Estimated GFR 15; Globulin 2.6 g/dL (2.4-3.5); Glucose 161 mg/dL (80-115); Potassium 3.3 mmol/L (3.5-5.1); Protein, Total 5.8 g/dL (5.8-8.1); Sodium 134 mmol/L (136-145)
[2024-04-27] MEDS: Potassium Chloride 20 MEQ in Premix 1 BAG IVPB SCH (07:52)
[2024-04-27] MEDS: Finasteride 5 MG TAB PO SCH (07:55)
[2024-04-27 07:59] LABS: Magnesium 1.9 mg/dL (1.6-2.6)
[2024-04-27] MEDS: Potassium Bicarbonate/Cit Ac 20 MEQ TAB PO SCH ×3 (09:04→13:41)
[2024-04-27] MEDS: Bisacodyl 5 MG TAB PO SCH (09:05)
[2024-04-27] MEDS ORDERED: Potassium Bicarbonate/Cit Ac 20 MEQ TAB PO SCH (14:00)
[2024-04-27] MEDS: Heparin 5,000 UNITS/ML VIAL SC SCH (14:52)
[2024-04-27 15:04] LABS: RBC Count-Automated (BF) 0 /cu.mm; WBC/Nucleated-Auto (BF) 82 /cu.mm
[2024-04-27 15:10] LABS: BF Color Yellow; Body Fluid Source Dialysate Fluid; Clarity Clear (Clear); Tube # EDTA
[2024-04-27 15:54] LABS: BF Segmented Neutrophils 10 %; Cell Count Non Hematic 82 %; Lymphocytes 8 %
[2024-04-28 08:59] LABS: #Basophils 0.03 10x3/uL (0.0-0.2); %Basophils 0.3 % (0.0-1.0); %Eosinophils 1.6 % (0.0-10.0); %Lymphocytes 8.7 % (21.0-51.0); %Monocytes 9.7 % (0.0-10.0); %Neutrophils 79.5 % (42.0-75.0); Hematocrit 32.9 % (42.0-52.0); Hemoglobin 11.8 g/dL (14.0-18.0); Mean Corpuscular HGB CONC 35.9 g/dL (32.0-36.0); Mean Corpuscular Hemoglobin 33.6 pg (27.0-31.0); Mean Corpuscular Volume 93.7 fL (78.0-98.0); Mean Platelet Volume 9.9 fL (7.4-10.4); Platelet Count 205 10x3/uL (130-400); RBC Distribution Width 12.8 % (11.5-14.5); Red Blood Cell (RBC) Count 3.51 mill/uL (4.70-6.10)
[2024-04-28 09:42] LABS: ALT (SGPT) 27 U/L (8-55); AST (SGOT) 24 U/L (5-34); Albumin 3.4 g/dL (3.4-4.8); Alkaline Phosphatase 140 U/L (40-110); Anion Gap 14 mmol/L (10-20); BUN (Urea Nitrogen) 46 mg/dL (8.4-25.7); Bilirubin, Total 1.3 mg/dL (0.2-1.2); Calc. Creatinine Clearance 18 mL/min (70-130); Calcium 8.7 mg/dL (7.8-10.44); Carbon Dioxide 23 mmol/L (23-31); Chloride 100 mmol/L (98-107); Estimated GFR 14; Glucose 167 mg/dL (80-115); Protein, Total 6.4 g/dL (5.8-8.1); Sodium 133 mmol/L (136-145)
[2024-04-28] MEDS ORDERED: glipiZIDE 10 MG TAB PO SCH (10:56)
[2024-04-28] MEDS ORDERED: MD-Gastroview 120 ML BOT ONE (13:10)
[2024-04-28] MEDS ORDERED: Morphine 4 MG/ML VIAL SLOW IVP PRN (19:14)
[2024-04-28] MEDS: Sodium Chloride 0.9% 500 ML IV SCH (21:09)
[2024-04-28] MEDS: Pantoprazole 40 MG VIAL IVP SCH (21:09)
[2024-04-28] MEDS: Sodium Chloride 0.9% 1,000 ML IV SCH (22:12)
[2024-04-29 07:35] LABS: #Basophils 0.04 10x3/uL (0.0-0.2); %Basophils 0.5 % (0.0-1.0); %Eosinophils 2.2 % (0.0-10.0); %Lymphocytes 15.1 % (21.0-51.0); %Monocytes 8.5 % (0.0-10.0); %Neutrophils 73.5 % (42.0-75.0); Hematocrit 33.5 % (42.0-52.0); Mean Corpuscular HGB CONC 35.8 g/dL (32.0-36.0); Mean Corpuscular Hemoglobin 33.6 pg (27.0-31.0); Mean Corpuscular Volume 93.8 fL (78.0-98.0); Mean Platelet Volume 10.1 fL (7.4-10.4); Platelet Count 212 10x3/uL (130-400); RBC Distribution Width 12.7 % (11.5-14.5); Red Blood Cell (RBC) Count 3.57 mill/uL (4.70-6.10)
[2024-04-29 07:55] LABS: ALT (SGPT) 25 U/L (8-55); AST (SGOT) 23 U/L (5-34); Albumin 3.3 g/dL (3.4-4.8); Alkaline Phosphatase 143 U/L (40-110); Anion Gap 16 mmol/L (10-20); BUN (Urea Nitrogen) 42 mg/dL (8.4-25.7); Calc. Creatinine Clearance 18 mL/min (70-130); Calcium 8.7 mg/dL (7.8-10.44); Carbon Dioxide 19 mmol/L (23-31); Chloride 105 mmol/L (98-107); Estimated GFR 14; Glucose 165 mg/dL (80-115); Potassium 3.9 mmol/L (3.5-5.1); Protein, Total 6.3 g/dL (5.8-8.1); Sodium 136 mmol/L (136-145)
[2024-04-29] MEDS: Pantoprazole 40 MG VIAL IVP SCH (10:15)
[2024-04-29] MEDS ORDERED: Bupivacaine PF 0.5% 30 ML VIAL ONE ×2 (10:50→12:04)
[2024-04-29] MEDS ORDERED: EPINEPHrine 1 MG/ML VIAL ONE ×3 (10:50→12:42)
[2024-04-29] MEDS ORDERED: Lidocaine 2% PF 5 ML VIAL ONE (10:52)
[2024-04-29] MEDS ORDERED: fentaNYL PF 100 MCG/2 ML SYRINGE ONE ×2 (10:52→13:35)
[2024-04-29] MEDS ORDERED: PROPOFOL 20 ML ONE (10:52)
[2024-04-29] MEDS ORDERED: cefOXitin 2 GM in Sodium Chloride 0.9% 100 ML IVPB SCH (11:15)
[2024-04-29] MEDS ORDERED: ePHEDrine Sulfate 50 MG/10 ML VIAL ONE (11:40)
[2024-04-29] MEDS ORDERED: Albumin 5% 250 ML ONE (11:58)
[2024-04-29] MEDS ORDERED: Albumin 5% 0 ML ONE (11:58)
[2024-04-29] MEDS ORDERED: Rocuronium Bromide 10 MG/ML (10ML VIAL) ONE (11:59)
[2024-04-29] MEDS ORDERED: HYDROmorphone 2 MG/ML VIAL ONE (12:01)
[2024-04-29] MEDS ORDERED: Heparin 10,000 UNITS/ 10 ML VIAL ONE (12:04)
[2024-04-29] MEDS ORDERED: Bupivacaine 0.25% HCL 30 ML VIAL ONE ×2 (12:07→12:42)
[2024-04-29] MEDS ORDERED: Dexamethasone 4 mg/ml Vial ONE (12:09)
[2024-04-29] MEDS ORDERED: Ondansetron PF 4 MG/2 ML Vial ONE (12:09)
[2024-04-29] MEDS ORDERED: SUGAMMADEX SODIUM 200 MG/2 ML VIAL ONE (12:16)
[2024-04-29] MEDS ORDERED: Promethazine HCl 25 MG/ML VIAL IM PRN (12:52)
[2024-04-29] MEDS ORDERED: diphenhydrAMINE 50 MG/ML VIAL IM PRN (12:52)
[2024-04-29] MEDS ORDERED: Morphine 100 MG in Sodium Chloride 0.9% 90 ML IV PRN (12:52)
[2024-04-29] MEDS ORDERED: Ondansetron PF 4 MG/2 ML Vial IVP PRN (12:52)
[2024-04-29] MEDS ORDERED: diphenhydrAMINE 50 MG/ML VIAL IVP PRN (12:52)
[2024-04-29] MEDS ORDERED: Naloxone HCl 0.4 mg/ml Vial IV PRN (12:52)
[2024-04-29] MEDS ORDERED: diphenhydrAMINE 25 MG CAP PO PRN (12:52)
[2024-04-29] MEDS ORDERED: Communication Order-Pharmacy FS SCH (13:00)
[2024-04-29] MEDS: Acetaminophen 500 MG TAB PO SCH (16:26)
[2024-04-29] MEDS: Sodium Chloride 0.45% 1,000 ML IV SCH (16:31)
[2024-04-30 04:17] LABS: #Basophils Less than 0.03 10x3/uL (0.0-0.2); #Eosinphils Less than 0.03 10x3/uL (0.0-0.7); %Lymphocytes 3.4 % (21.0-51.0); %Monocytes 6.4 % (0.0-10.0); %Neutrophils 89.8 % (42.0-75.0); Hematocrit 30.8 % (42.0-52.0); Mean Corpuscular HGB CONC 35.7 g/dL (32.0-36.0); Mean Corpuscular Hemoglobin 34.3 pg (27.0-31.0); Mean Platelet Volume 9.9 fL (7.4-10.4); Platelet Count 169 10x3/uL (130-400); RBC Distribution Width 12.6 % (11.5-14.5); Red Blood Cell (RBC) Count 3.21 mill/uL (4.70-6.10)
[2024-04-30 04:48] LABS: ALT (SGPT) 24 U/L (8-55); AST (SGOT) 25 U/L (5-34); Albumin 3.1 g/dL (3.4-4.8); Alkaline Phosphatase 129 U/L (40-110); Anion Gap 16 mmol/L (10-20); BUN (Urea Nitrogen) 49 mg/dL (8.4-25.7); Bilirubin, Total 0.9 mg/dL (0.2-1.2); Calc. Creatinine Clearance 19 mL/min (70-130); Calcium 8.1 mg/dL (7.8-10.44); Carbon Dioxide 18 mmol/L (23-31); Chloride 106 mmol/L (98-107); Estimated GFR 14; Globulin 2.7 g/dL (2.4-3.5); Glucose 221 mg/dL (80-115); Potassium 4.9 mmol/L (3.5-5.1); Protein, Total 5.8 g/dL (5.8-8.1); Sodium 135 mmol/L (136-145)
[2024-04-30] MEDS: Acetaminophen 500 MG TAB PO SCH (08:25)
[2024-04-30] MEDS: Tuberculin PPD 0.1 ML SYRINGE (10 TEST VIAL) I-DERMAL SCH (16:59)
[2024-04-30] MEDS: Insulin Lispro 100 UNIT/ML 10 ML VIAL SC PRN (17:28)
[2024-04-30] MEDS: glipiZIDE XL 10 mg ER.TAB PO SCH (17:28)
[2024-04-30] MEDS: Simethicone Chewable 80 MG TAB PO PRN (20:26)
[2024-04-30] MEDS: Atorvastatin Calcium 20 MG TAB PO SCH (20:27)
[2024-04-30] MEDS ORDERED: glipiZIDE XL 10 mg ER.TAB PO SCH (21:00)
[2024-05-01] MEDS: traMADol HCl 50 MG TAB PO PRN (04:11)
[2024-05-01 04:13] VITALS: BMI 26.1
[2024-05-01 05:18] LABS: #Basophils 0.03 10x3/uL (0.0-0.2); %Basophils 0.2 % (0.0-1.0); %Eosinophils 0.2 % (0.0-10.0); %Monocytes 8.2 % (0.0-10.0); %Neutrophils 84.7 % (42.0-75.0); Hematocrit 30.3 % (42.0-52.0); Hemoglobin 10.9 g/dL (14.0-18.0); Mean Corpuscular Volume 94.4 fL (78.0-98.0); Platelet Count 164 10x3/uL (130-400); RBC Distribution Width 12.9 % (11.5-14.5); Red Blood Cell (RBC) Count 3.21 mill/uL (4.70-6.10)
[2024-05-01 05:58] LABS: ALT (SGPT) 13 U/L (8-55); AST (SGOT) 20 U/L (5-34); Albumin 2.9 g/dL (3.4-4.8); Alkaline Phosphatase 114 U/L (40-110); Anion Gap 12 mmol/L (10-20); BUN (Urea Nitrogen) 52 mg/dL (8.4-25.7); Bilirubin, Total 1.6 mg/dL (0.2-1.2); Calc. Creatinine Clearance 19 mL/min (70-130); Calcium 8.6 mg/dL (7.8-10.44); Carbon Dioxide 21 mmol/L (23-31); Chloride 104 mmol/L (98-107); Estimated GFR 15; Globulin 2.8 g/dL (2.4-3.5); Glucose 171 mg/dL (80-115); Potassium 4.4 mmol/L (3.5-5.1); Protein, Total 5.7 g/dL (5.8-8.1); Sodium 133 mmol/L (136-145)
[2024-05-01] MEDS ORDERED: Heparin 10,000 UNITS/ 10 ML VIAL ONE (08:27)
[2024-05-01 10:02] LABS: Phosphorus 3.3 mg/dL (2.3-4.7)
[2024-05-01] MEDS: EPOETIN ALFA-EPBX (ESRD) 10,000 UNITS/ML VIAL SC SCH (12:38)
[2024-05-02 04:58] LABS: #Basophils 0.03 10x3/uL (0.0-0.2); %Basophils 0.4 % (0.0-1.0); %Lymphocytes 14.2 % (21.0-51.0); %Monocytes 8.5 % (0.0-10.0); %Neutrophils 73.9 % (42.0-75.0); Hematocrit 28.1 % (42.0-52.0); Mean Corpuscular HGB CONC 35.6 g/dL (32.0-36.0); Mean Corpuscular Hemoglobin 34.4 pg (27.0-31.0); Mean Corpuscular Volume 96.6 fL (78.0-98.0); Platelet Count 140 10x3/uL (130-400); RBC Distribution Width 12.9 % (11.5-14.5); Red Blood Cell (RBC) Count 2.91 mill/uL (4.70-6.10)
[2024-05-02 05:19] LABS: ALT (SGPT) 16 U/L (8-55); AST (SGOT) 24 U/L (5-34); Albumin 2.7 g/dL (3.4-4.8); Alkaline Phosphatase 114 U/L (40-110); Anion Gap 14 mmol/L (10-20); BUN (Urea Nitrogen) 28 mg/dL (8.4-25.7); Bilirubin, Total 1.3 mg/dL (0.2-1.2); Calc. Creatinine Clearance 29 mL/min (70-130); Calcium 8.6 mg/dL (7.8-10.44); Carbon Dioxide 25 mmol/L (23-31); Chloride 102 mmol/L (98-107); Estimated GFR 24; Globulin 2.8 g/dL (2.4-3.5); Glucose 54 mg/dL (80-115); Potassium 3.9 mmol/L (3.5-5.1); Protein, Total 5.5 g/dL (5.8-8.1); Sodium 137 mmol/L (136-145)
[2024-05-02 07:39] VITALS: BP 166/76; TEMP 97.6
== END 2024-05-02 15:28 | disposition home or self-care (01) | DRG 907 ==
LOC: ERS 01:56 → T4-B 09:10 → OBSVTOIN 04-27 10:04
PROVIDERS: ADMIT Student in an Organized Health Care Education/Training Program; ATTEND Student in an Organized Health Care Education/Training Program
PROC: 0DN80ZZ Release Small Intestine, Open Approach (ICD-10-PCS; principal; 2024-04-29)
PROC: 0DJ04ZZ Inspection of Upper Intestinal Tract, Percutaneous Endoscopic Approach (ICD-10-PCS; 2024-04-29)
PROC: 0WPG43Z Removal of Infusion Device from Peritoneal Cavity, Percutaneous Endoscopic Approach (ICD-10-PCS; 2024-04-29)
PROC: 02HV33Z Insertion of Infusion Device into Superior Vena Cava, Percutaneous Approach (ICD-10-PCS; 2024-04-29)
PROC: B518ZZA Fluoroscopy of Superior Vena Cava, Guidance (ICD-10-PCS; 2024-04-29)
PROC: B548ZZA Ultrasonography of Superior Vena Cava, Guidance (ICD-10-PCS; 2024-04-29)
PROC: 0JH60XZ Insertion of Tunneled Vascular Access Device into Chest Subcutaneous Tissue and Fascia, Open Approach (ICD-10-PCS; 2024-04-29)
PROC: 5A1D70Z Performance of Urinary Filtration, Intermittent, Less than 6 Hours Per Day (ICD-10-PCS; 2024-05-01)
DX: T85.691A Other mechanical complication of intraperitoneal dialysis catheter, initial encounter (principal); N18.6 End stage renal disease; I12.0 Hypertensive chronic kidney disease with stage 5 chronic kidney disease or end stage renal disease; K56.600 Partial intestinal obstruction, unspecified as to cause; E87.6 Hypokalemia; E11.22 Type 2 diabetes mellitus with diabetic chronic kidney disease; N40.0 Benign prostatic hyperplasia without lower urinary tract symptoms; E83.42 Hypomagnesemia; E78.5 Hyperlipidemia, unspecified; Z88.2 Allergy status to sulfonamides; Z79.899 Other long term (current) drug therapy; Z79.84 Long term (current) use of oral hypoglycemic drugs
CPT/HCPCS: 36415; 36416; 71045; 74019; 74177; 74250; 80053; 83605; 83690; 83735; 84100; 85025; 85060; 86580; 87070; 87205; 89051; 90935; 90945; 96374; 96375; 96376; C1750; C1751; C1776; G0257; G0378; J0171; J0665; J1100; J1170; J1644; J2001; J2405; J2470; J2704; J3475; J3480; J7030; J7120; P9045; Q5105; Q9963; Q9967

== ENCOUNTER 2025-05-07 05:57 | Day surgery (SDC) | payer MEDICARE, OTHER ==
[2025-05-06 13:38] VITALS: BMI 25.5
[2025-05-07] MEDS ORDERED: PROPOFOL 40 ML ONE (06:56)
[2025-05-07 07:25] LABS: Potassium 3.7 mmol/L (3.5-5.1)
[2025-05-07] MEDS ORDERED: PROPOFOL 20 ML ONE (07:54)
== END 2025-05-07 09:20 | disposition home or self-care (01) ==
LOC: SDC 05:57
PROVIDERS: ATTEND Internal Medicine Gastroenterology
PROC: 0DBN8ZZ Excision of Sigmoid Colon, Via Natural or Artificial Opening Endoscopic (ICD-10-PCS; principal; 2025-05-07)
PROC: 0DBL8ZZ Excision of Transverse Colon, Via Natural or Artificial Opening Endoscopic (ICD-10-PCS; 2025-05-07)
DX: Z12.11 Encounter for screening for malignant neoplasm of colon (principal); D12.3 Benign neoplasm of transverse colon; D12.5 Benign neoplasm of sigmoid colon; K57.30 Diverticulosis of large intestine without perforation or abscess without bleeding; I12.0 Hypertensive chronic kidney disease with stage 5 chronic kidney disease or end stage renal disease; N18.6 End stage renal disease; E11.22 Type 2 diabetes mellitus with diabetic chronic kidney disease; E78.00 Pure hypercholesterolemia, unspecified; Z86.0101 Personal history of adenomatous and serrated colon polyps; Z80.0 Family history of malignant neoplasm of digestive organs; Z90.49 Acquired absence of other specified parts of digestive tract; Z88.2 Allergy status to sulfonamides; Z79.82 Long term (current) use of aspirin; Z79.84 Long term (current) use of oral hypoglycemic drugs; Z79.899 Other long term (current) drug therapy
CPT/HCPCS: 45385; 84132; J2704; 88305

== ENCOUNTER 2025-06-05 10:59 | Emergency (ER) | payer MEDICARE, OTHER | END 2025-06-05 12:03 | disposition home or self-care (01) | LOC: ERS 10:59 | DX: B02.9 Zoster without complications (principal); B30.9 Viral conjunctivitis, unspecified; E11.22 Type 2 diabetes mellitus with diabetic chronic kidney disease; N18.9 Chronic kidney disease, unspecified; Z99.2 Dependence on renal dialysis | CPT/HCPCS: 99282 ==